=== PATIENT | male | born 1950 | race Caucasian/White ===

== ENCOUNTER 2018-11-04 07:17 | Day surgery (SDC) | payer OTHER ==
[~2018-11-04 07:17] MED LIST: Cefuroxime 10 MG/ML SYRINGE EYERT SCH; Lidocaine 1% PF 2 ML SDV INJECT SCH; Pilocarpine 4% Ophth Soln 15 ML Bot EYERT SCH
[2018-11-04] MEDS: Polymyxin B/Trimethoprim 10 ML Bottle EYERT SCH ×3 (07:36→09:33)
[2018-11-04] MEDS: Brimonidine 0.2% Ophth Soln 5 ML Bottle EYERT SCH ×3 (07:41→09:33)
[2018-11-04] MEDS: Phenylephrine 2.5% Ophth Soln 2 ML Bot EYERT SCH ×5 (07:46→09:13)
--- NOTE | 2018-11-04 07:48 | PCM.PREANE ---
Preanesthetic Assessment - Anesthesia/Transfusion/Family Hx Anesthesia History: No Prior Anesthesia Transfusion History: No Prior Transfusion(s) Intubation History: Unknown - Allergies Allergies/Adverse Reactions: Allergies Allergy/AdvReac Type Severity Reaction Status Date / Time No Known Allergies Allergy Verified 11/03/18 15:36 PreAnesthesia Questionnaire Cardiovascular History: Reports: Aneurysm, Hypertension, SC, Pacemaker, Stents Other Genitourinary History: prostate surgery Endocrine/Metabolic History: Reports: Diabetes, Type II - Past Surgical History Cardiovascular Surgical History: Male Surgical History: Reports: Prostatectomy - HOME MEDS Home Medications: Home Meds Lisinopril 1 tab PO DAILY 03/21/16 [History] metFORMIN [Glucophage] 1,000 mg PO BID 03/21/16 [History] Clopidogrel [Plavix] 75 mg PO DAILY 10/02/18 [History] - CURRENT (IN HOUSE) MEDS Current Meds: Current Medications Brimonidine Tartrate (Alphagan 0.2% Ophth Soln) 0 ml EYERT ASDIRECTED [facility] Stop: 11/04/18 18:00 Cefuroxime Sodium (Zinacef) 0 mg EYERT ASDIRECTED [facility] Stop: 11/04/18 18:00 Lidocaine HCl (Xylocaine-Mpf 1%) 0 ml INJECT ONETIME [facility] Stop: 11/04/18 18:00 Phenylephrine HCl (Colin-Synephrine 2.5% Ophth Soln) 0 ml EYERT ASDIRECTED [facility] Stop: 11/04/18 18:00 Pilocarpine HCl (Pilocar 4% Ophth Soln) 0 ml EYERT ASDIRECTED [facility] Stop: 11/04/18 18:00 Polymyxin/Trimethoprim Sulfate (Polytrim Ophth Soln) 0 ml EYERT ASDIRECTED [facility] Stop: 11/04/18 18:00 Last Admin: 11/04/18 07:36 Dose: 1 drop Tetracaine HCl (Tetracaine 0.5% Steri-Unit [place]) 0 ml EYERT ASDIRECTED [facility] Stop: 11/04/18 18:00 Tropicamide (Mydriacyl 1% Oph Soln) 0 ml EYERT ASDIRECTED [facility] Stop: 11/04/18 18:00
[2018-11-04] MEDS: Tropicamide 1% Ophth Soln 15 ML Bottle EYERT SCH ×4 (07:51→08:50)
--- NOTE | 2018-11-04 07:56 | PCM.PREANE ---
Preanesthetic Assessment - Anesthesia/Transfusion/Family Hx Anesthesia History: Prior Anesthesia Without Reaction Family History of Anesthesia Reaction: No Transfusion History: No Prior Transfusion(s) Intubation History: Unknown - Review of Systems General: No Symptoms Pulmonary: No Symptoms Cardiovascular: No Symptoms Gastrointestinal: No Symptoms Neurological: No Symptoms Other: Reports: None - Physical Assessment NPO Status Date: 11/03/18 NPO Status Time: 22:00 Pulse: 84 O2 Sat by Pulse Oximetry: 96 Respiratory Rate: 16 Blood Pressure: 133/81 Temperature: 97.1 C ASA Class: 2 Mental Status: Alert & Oriented x3 Airway Class: Mallampati = 2 Dentition: Reports: Bridge (upper) Thyro-Mental Finger Breadths: 3 Mouth Opening Finger Breadths: 3 ROM/Head Extension: Full Lungs: Clear to Auscultation, Normal Respiratory Effort Cardiovascular: Regular Rate, Regular Rhythm - Allergies Allergies/Adverse Reactions: Allergies Allergy/AdvReac Type Severity Reaction Status Date / Time No Known Allergies Allergy Verified 11/03/18 15:36 - Acknowledgements Anesthesia Type Planned: MAC Pt an Appropriate Candidate for the Planned Anesthesia: Yes Alternatives and Risks of Anesthesia Discussed w Pt/Guardian: Yes Pt/Guardian Understands and Agrees with Anesthesia Plan: Yes PreAnesthesia Questionnaire HEENT History: Reports: Cataract Cardiovascular History: Reports: Aneurysm, Hypertension, ME (pt states about 11 years ago), Pacemaker, Stents Respiratory History: Reports: None Gastrointestinal History: Reports: None Other Genitourinary History: prostate surgery Musculoskeletal History: Reports: Arthritis Endocrine/Metabolic History: Reports: Diabetes, Type II (pt states does not check BS) - Past Surgical History HEENT Surgical History: Reports: Cataract Surgery Cardiovascular Surgical History: Reports: Aneurysm, Coronary Artery Stent, Pacer Male Surgical History: Reports: Prostatectomy - SUBSTANCE USE Smoking Status *Q: Current Some Day Smoker - HOME MEDS Home Medications: Home Meds Lisinopril 1 tab PO DAILY 03/21/16 [History] metFORMIN [Glucophage] 1,000 mg PO BID 03/21/16 [History] Clopidogrel [Plavix] 75 mg PO DAILY 10/02/18 [History] - CURRENT (IN HOUSE) MEDS Current Meds: Current Medications Brimonidine Tartrate (Alphagan 0.2% Ophth Soln) 0 ml EYERT ASDIRECTED [facility] Stop: 11/04/18 18:00 Last Admin: 11/04/18 07:41 Dose: 1 drop Cefuroxime Sodium (Zinacef) 0 mg EYERT ASDIRECTED [facility] Stop: 11/04/18 18:00 Lidocaine HCl (Xylocaine-Mpf 1%) 0 ml INJECT ONETIME [facility] Stop: 11/04/18 18:00 Phenylephrine HCl (Colin-Synephrine 2.5% Ophth Soln) 0 ml EYERT ASDIRECTED [facility] Stop: 11/04/18 18:00 Last Admin: 11/04/18 07:46 Dose: 1 drop Pilocarpine HCl (Pilocar 4% Ophth Soln) 0 ml EYERT ASDIRECTED [facility] Stop: 11/04/18 18:00 Polymyxin/Trimethoprim Sulfate (Polytrim Ophth Soln) 0 ml EYERT ASDIRECTED [facility] Stop: 11/04/18 18:00 Last Admin: 11/04/18 07:36 Dose: 1 drop Tetracaine HCl (Tetracaine 0.5% Steri-Unit [place]) 0 ml EYERT ASDIRECTED [facility] Stop: 11/04/18 18:00 Tropicamide (Mydriacyl 1% Ophth Soln) 0 ml EYERT ASDIRECTED [facility] Stop: 11/04/18 18:00
[2018-11-04] MEDS: Tetracaine HCl/PF 0.5% 4 ML Bottle EYERT SCH ×2 (09:07→09:20)
[2018-11-04 09:36] VITALS: BP 165/87
--- NOTE | 2018-11-04 09:36 | PCM48HPAN ---
Post Anesthesia Note - EVALUATION WITHIN 48HRS OF ANESTHETIC Vital Signs in Normal Range: Yes Patient Participated in Evaluation: Yes Respiratory Function Stable: Yes Airway Patent: Yes Cardiovascular Function Stable: Yes Hydration Status Stable: Yes Pain Control Satisfactory: Yes Nausea and Vomiting Control Satisfactory: Yes Mental Status Recovered: Yes Pulse Rate: 60 SaO2: 96 Resp Rate: 12 Temperature: 97.1 C Blood Pressure: 165/87
== END 2018-11-04 09:44 | disposition home or self-care (01) ==
LOC: JD.SDS 07:17
PROVIDERS: ATTEND Ophthalmology
DX: E11.36 Type 2 diabetes mellitus with diabetic cataract (principal); H25.811 Combined forms of age-related cataract, right eye; I10 Essential (primary) hypertension; F17.200 Nicotine dependence, unspecified, uncomplicated; Z79.84 Long term (current) use of oral hypoglycemic drugs; Z79.899 Other long term (current) drug therapy; Z95.0 Presence of cardiac pacemaker; Z98.42 Cataract extraction status, left eye; Z96.1 Presence of intraocular lens
CPT/HCPCS: 66984; A9270; J0697; J2001; V2632

== ENCOUNTER 2020-03-22 10:18 | Emergency (ER) | payer MEDICARE, OTHER ==
[2020-03-22 10:29] VITALS: BP 155/77; PULSE 65
[2020-03-22] MEDS ORDERED: Sodium Chloride 0.9% 10 ML Syringe FLUSH PRN (10:37)
[2020-03-22] MEDS ORDERED: Aspirin 81 MG Tab.Chew PO ONE (10:37)
--- NOTE | 2020-03-22 10:50 | EDM.PDOC ---
ED HPI GENERAL MEDICAL PROBLEM - General Chief Complaint: Chest Pain Stated Complaint: CHEST PAIN Time Seen by Provider: 03/22/20 10:28 Source of Information: Reports: Patient History Limitations: Reports: No Limitations - History of Present Illness INITIAL COMMENTS - FREE TEXT/NARRATIVE: The patient presents with chest pain. This has been coming and going for about 5 days. The pain comes and goes and is made worse with exertion. He has a little shortness of breath with it. He has a history of an NC and stents about 10 years ago. He also has a pacemaker. He has no fever, chills, cough, congestion, runny nose, abdominal pain, nausea or vomiting. He just had an echocardiogram done at our hospital. He went to the [facility] for labs and then sent him here for evaluation. He says he has a history of an aneurysm that they have been watching. The aneurysm was fixed before his heart attack and it was near his kidneys according to the patient. Onset: Gradual Duration: Day(s): (5) Location: Reports: Chest Quality: Reports: Sharp Severity: Moderate Improves with: Reports: Rest Worsens with: Reports: Movement Associated Symptoms: Reports: Chest Pain, Shortness of Breath. Denies: Cough, Fever/Chills, Headaches, Nausea/Vomiting Treatments PALLETISER OPERATOR: Reports: Aspirin Other Treatments PALLETISER OPERATOR: 81mg chest Pain Score (Numeric/FACES): 5 - Related Data Allergies Allergy/AdvReac Type Severity Reaction Status Date / Time No Known Allergies Allergy Verified 03/22/20 10:29 Home Meds: Home Meds Lisinopril 40 mg PO DAILY 03/21/16 [History] metFORMIN [Glucophage] 1,000 mg PO BID 03/21/16 [History] Clopidogrel [Plavix] 75 mg PO DAILY 10/02/18 [History] Alogliptin Benzoate [Alogliptin] 25 mg PO DAILY 03/22/20 [History] Ibuprofen 800 mg PO TID PRN 03/22/20 [History] Isosorbide Mononitrate [Imdur] 30 mg PO DAILY #30 tab.er 03/22/20 [Rx] Lidocaine 2 each TP ASDIRECTED 03/22/20 [History] Nitroglycerin 0.4 mg SL Q5M PRN #1 bottle 03/22/20 [Rx] hydroCHLOROthiazide [Hydrochlorothiazide] 12.5 mg PO DAILY 03/22/20 [History] Past Medical History HEENT History: Reports: Cataract Cardiovascular History: Reports: Aneurysm, Hypertension, NC, Pacemaker, Stents Respiratory History: Reports: None Gastrointestinal History: Reports: None Other Genitourinary History: prostate surgery Musculoskeletal History: Reports: Arthritis Endocrine/Metabolic History: Reports: Diabetes, Type II - Past Surgical History HEENT Surgical History: Reports: Cataract Surgery Male Surgical History: Reports: Prostatectomy Social & Family History - Tobacco Use Smoking Status *Q: Former Smoker Used Tobacco, but Quit: Yes Month/Year Tobacco Last Used: 05/01 - Caffeine Use Caffeine Use: Reports: None - Recreational Drug Use Recreational Drug Use: No ED ROS GENERAL - Review of Systems Review Of Systems: See Below Constitutional: Reports: No Symptoms HEENT: Reports: No Symptoms Respiratory: Reports: Shortness of Breath Cardiovascular: Reports: Chest Pain Endocrine: Reports: No Symptoms GI/Abdominal: Reports: No Symptoms : Reports: No Symptoms Musculoskeletal: Reports: No Symptoms ED EXAM, GENERAL - Physical Exam Exam: See Below Exam Limited By: No Limitations General Appearance: Alert, No Apparent Distress Ears: Normal External Exam Nose: Normal Inspection Head: Atraumatic, Normocephalic Neck: Normal Inspection Respiratory/Chest: No Respiratory Distress, Lungs Clear, Normal Breath Sounds Cardiovascular: Regular Rate, Rhythm, No Edema, No Murmur GI/Abdominal: Soft, Non-Tender, No Organomegaly, No Mass Back Exam: Normal Inspection Extremities: Normal Inspection EKG INTERPRETATION EKG Date: 03/22/20 Time: 10:21 Rhythm: Other (atrial paced rhythm) Rate (Beats/Min): 66 [place]: Normal P-Wave: Present QRS: Normal ST-T: Normal QT: Normal Course - Vital Signs Last Recorded V/S: Last Vital Signs Temp 97.1 F 03/22/20 10:24 Pulse 65 03/22/20 10:24 Resp 19 03/22/20 10:24 BP 155/77 H 03/22/20 10:24 Pulse Ox 97 03/22/20 10:24 - Orders/Labs/Meds Orders: Active Orders 24 hr Category Date Time Status Cardiac Monitoring [RC] . DIRECTED Care 03/22/20 10:37 Active EKG Documentation Completion [RC] STAT Care 03/22/20 10:38 Active Peripheral IV Care [RC] . DIRECTED Care 03/22/20 10:38 Active TROPONIN I [CHEM] Stat Lab 03/22/20 12:15 Ordered Sodium Chloride 0.9% [Saline Flush] Med 03/22/20 10:37 Active 10 ml FLUSH ASDIRECTED PRN Peripheral IV Insertion Adult [OM.PC] Stat Oth 03/22/20 10:37 Ordered Medication Orders Sodium Chloride (Saline Flush) 10 ml FLUSH ASDIRECTED PRN PRN Reason: Keep Vein Open Last Admin: 03/22/20 10:50 Dose: 10 ml Labs: Laboratory Tests 03/22/20 03/22/20 Range/Units 10:30 10:30 WBC 8.77 (4.23-9.07) K/mm3 RBC 4.43 L (4.63-6.08) M/mm3 Hgb 14.2 (13.7-17.5) gm/dl Hct 43.3 (40.1-51.0) % MCV 97.7 H (79.0-92.2) fl MCH 32.1 (25.7-32.2) pg MCHC 32.8 (32.2-35.5) g/dl RDW Std Deviation 44.0 H (35.1-43.9) fL Plt Count 250 (163-337) K/mm3 MPV 9.6 (9.4-12.3) fl Neut % (Auto) 62.5 (34.0-67.9) % Lymph % (Auto) 24.5 (21.8-53.1) % [place] % (Auto) 10.3 (5.3-12.2) % Eos % (Auto) 2.4 (0.8-7.0) Baso % (Auto) 0.2 (0.1-1.2) % Neut # (Auto) 5.48 H (1.78-5.38) K/mm3 Lymph # (Auto) 2.15 (1.32-3.57) K/mm3 [place] # (Auto) 0.90 H (0.30-0.82) K/mm3 Eos # (Auto) 0.21 (0.04-0.54) K/mm3 Baso # (Auto) 0.02 (0.01-0.08) K/mm3 Sodium 139 (136-145) mEq/L Potassium 4.2 (3.5-5.1) mEq/L Chloride 101 (98-107) mEq/L Carbon Dioxide 28 (21-32) mEq/L Anion Gap 14.2 (5-15) BUN 20 H (7-18) mg/dL Creatinine 1.0 (0.7-1.3) mg/dL Est Cr Clr Drug Dosing 75.30 mL/min Estimated GFR (MDRD) > 60 (>60) mL/min BUN/Creatinine Ratio 20.0 H (14-18) Glucose 117 H (80-115) mg/dL Calcium 9.5 (8.5-10.1) mg/dL Total Bilirubin 0.5 (0.2-1.0) mg/dL AST 17 (15-37) U/L ALT 28 (16-63) U/L Alkaline Phosphatase 40 L (46-116) U/L Troponin I < 0.017 (0.00-0.056) ng/mL Total Protein 7.3 (6.4-8.2) g/dl Albumin 3.8 (3.4-5.0) g/dl Globulin 3.5 gm/dL Albumin/Globulin Ratio 1.1 (1-2) Meds: Medications Generic Name Dose Route Start Last Admin Trade Name Freq PRN Reason Stop Dose Admin Sodium Chloride 10 ml 03/22/20 10:37 03/22/20 10:50 Saline Flush FLUSH 10 ml ASDIRECTED PRN Administration Keep Vein Open Discontinued Medications Generic Name Dose Route Start Last Admin Trade Name Freq PRN Reason Stop Dose Admin Aspirin 324 mg 03/22/20 10:37 03/22/20 10:50 Aspirin PO 03/22/20 10:38 324 mg ONETIME ONE Administration - Re-Assessments/Exams Free Text/Narrative Re-Assessment/Exam: 03/22/20 10:50 I ordered an IV saline lock, EKG, CXR, labs and aspirin. He says the pain is mostly gone now. 03/22/20 12:20 His EKG shows a atrial-paced rhythm without acute changes. His CXR looks good. His CBC and CMP look good. His troponin is negative. He feels good now. I called [facility] in [place] and talked with Dr Miranda and he looked at the patient's heart cath that was done in November. He did not think he needed to come to [place]. He did recommend imdur daily and nitro PRN and follow up with Dr Gomez. I will get a repeat troponin before he leaves. Departure - Departure Time of Disposition: 12:30 Disposition: Home, Self-Care 01 Condition: Good Clinical Impression: Chest pain Qualifiers: Chest pain type: unspecified Qualified Code(s): R07.9 - Chest pain, unspecified Prescriptions: Isosorbide Mononitrate [Imdur] 30 mg PO DAILY #30 tab.er Nitroglycerin 0.4 mg SL Q5M PRN #1 bottle PRN Reason: Chest Pain Referrals: Emely Norris MD [Primary Care Provider] - 1 Week Forms: ED Department Discharge Additional Instructions: Take your medications as prescribed. Take the imdur 30mg daily. Take the nitro 0.4mg under your tongue every 5 minutes X 3 doses for chest pain. Follow up with Dr Norris and Dr Kinney. Please return if you are worse. Sepsis Event Note (ED) - Evaluation Sepsis Screening Result: No Definite Risk - Focused Exam Vital Signs: Vital Signs Temp Pulse Resp BP Pulse Ox 03/22/20 10:24 97.1 F 65 19 155/77 H 97 - My Orders Last 24 Hours: My Active Orders 03/22/20 10:37 Cardiac Monitoring [RC] . DIRECTED Sodium Chloride 0.9% [Saline Flush] 10 ml FLUSH ASDIRECTED PRN Peripheral IV Insertion Adult [OM.PC] Stat 03/22/20 10:38 EKG Documentation Completion [RC] STAT Peripheral IV Care [RC] . DIRECTED 03/22/20 12:15 TROPONIN I [CHEM] Stat - Assessment/Plan Last 24 Hours: My Active Orders 03/22/20 10:37 Cardiac Monitoring [RC] . DIRECTED Sodium Chloride 0.9% [Saline Flush] 10 ml FLUSH ASDIRECTED PRN Peripheral IV Insertion Adult [OM.PC] Stat 03/22/20 10:38 EKG Documentation Completion [RC] STAT Peripheral IV Care [RC] . DIRECTED 03/22/20 12:15 TROPONIN I [CHEM] Stat
--- NOTE | 2020-03-22 11:01 | CR ---
Chest: Portable view of the chest was obtained. Comparison: No prior chest imaging is available. Heart size and mediastinum are within normal limits for portable technique. Lungs are clear with no acute parenchymal change. Pacemaker is noted. Bony structures are grossly intact. Impression: 1. Nothing acute is appreciated on portable chest x-ray. Diagnostic code #1 This report was dictated in MDT
== END 2020-03-22 12:49 | disposition home or self-care (01) ==
LOC: JD.ED 10:18
DX: R07.9 Chest pain, unspecified (principal); I10 Essential (primary) hypertension; E11.9 Type 2 diabetes mellitus without complications; M19.90 Unspecified osteoarthritis, unspecified site; I25.2 Old myocardial infarction; Z95.5 Presence of coronary angioplasty implant and graft; Z95.0 Presence of cardiac pacemaker; Z87.891 Personal history of nicotine dependence; Z79.02 Long term (current) use of antithrombotics/antiplatelets; Z79.84 Long term (current) use of oral hypoglycemic drugs; Z79.899 Other long term (current) drug therapy
CPT/HCPCS: 36415; 71045; 80053; 84484; 85025; 93005; 99285; A9270; 93010; 99284

== ENCOUNTER 2021-04-05 08:59 | Observation (INO) | payer OTHER, MEDICARE ==
[2021-04-05] MEDS ORDERED: HYDROmorphone 0.5 MG/0.5 ML Syringe IVPUSH ONE ×3 (09:37→11:25)
[2021-04-05] MEDS ORDERED: Sodium Chloride 0.9% 10 ML Syringe FLUSH PRN ×2 (09:37→11:27)
[2021-04-05] MEDS ORDERED: Sodium Chloride 0.9% 1,000 ML IV SCH (09:45)
--- NOTE | 2021-04-05 10:54 | CR ---
Chest and right ribs: Frontal view of the chest was obtained as well as 3 views of the right ribs. Comparison: Prior chest x-ray of 03/22/20. Pacemaker is noted. Lungs are clear with no acute parenchymal change. Heart size is within normal limits. Slight tortuosity of the thoracic aorta is noted. Scattered degenerative endplate spurring is noted within the spine. No fracture or other discrete right-sided rib abnormality is appreciated. Impression: 1. Nothing acute is seen on frontal chest x-ray. 2. No definite acute right-sided rib abnormality is appreciated. Diagnostic code #2
[2021-04-05] MEDS ORDERED: Iopamidol 612 MG/ML 100 ML Bottle IVPUSH ONE (11:27)
[2021-04-05] MEDS ORDERED: Iopamidol 612 MG/ML 50 ML SDV IVPUSH ONE (11:27)
--- NOTE | 2021-04-05 12:16 | CT ---
CT lumbar spine Technique: Multiple axial sections were obtained from above L1-2 inferiorly through the L5-S1 disc. Reconstructed coronal and sagittal images were obtained. Comparison: No prior lumbar spine imaging is available. Findings: Vertebral body heights are maintained. Bilateral spondylolytic defects are seen at L5-S1. There is severe disc space narrowing at L5-S1 with vacuum disc phenomena. There is also spondylolisthesis measuring about 4 mm at L5-S1. There is mild disc space narrowing at L3-4 and L4-5. Diffuse degenerative apophyseal change is noted. Diffuse endplate osteophytes are present. Circumferential disc bulge is noted at L2-3. Circumferential disc bulge and vacuum phenomena is noted at L3-4. There is felt to be moderate central canal stenosis at L4-5. Degenerative change is noted within both sacroiliac joints. No acute fracture is seen. Impression: 1. Diffuse degenerative change as noted above. 2. No acute fracture or abnormal subluxation is seen. Diagnostic code #2
--- NOTE | 2021-04-05 12:36 | CT ---
CT chest Technique: Multiple axial sections were obtained from above the lung apices inferiorly through the lung bases. Intravenous contrast was utilized. Reconstructed coronal and sagittal images were obtained. Comparison: No prior CT chest study is available, prior chest x-ray of 04/05/21 is available. Findings: Pacemaker is noted with artifact. Thoracic aorta shows atherosclerotic calcification with no aneurysm. Mediastinum and hilar regions show no adenopathy. Coronary artery calcification is seen. No pericardial thickening is seen. No axillary adenopathy is appreciated. Slight atelectasis is noted within the right lung base. Lungs otherwise are clear. No acute pulmonary contusion is seen. No pleural effusions or pneumothorax are seen. Bone window settings were reviewed which show no acute osseous abnormality. There is degenerative change with disc space narrowing and endplate spurring noted within the spine. Slight compression deformities are noted within T7 and T9 which are believed to be old. Impression: 1. Atelectasis within the right lung base. 2. Degenerative change within the spine. Coronary artery calcification is seen. 3. Pacemaker is noted. 4. Nothing acute is otherwise seen on CT study of the chest. Diagnostic code #2 CT abdomen and pelvis Technique: Multiple axial sections were obtained from above the lung apices inferiorly through the lung bases. Intravenous contrast was utilized. No oral contrast has been given. Reconstructed coronal and sagittal images were obtained. Comparison: Prior CT abdomen and pelvis exam was 06/03/12. Findings: There is low density seen along the right lateral side of the liver as well as inferior to the liver, these are felt to represent areas of subcapsular hematoma. Thickness of the inferior area of subcapsular hematoma is 4.6 cm with transverse measurement being 10.3 cm. Thickness of the lateral hematoma is about 1.5 cm with length of about 12 cm. I do not see any definite intraparenchymal liver abnormality at this time. Spleen size is normal. Gallbladder contains no calcified gallstones. Adrenal glands show no nodule. Pancreas is within normal limits. Abdominal aorta shows aneurysmal dilatation with intravascular graft being seen. Kidneys show small cysts with normal enhancement. No renal abnormality otherwise seen. No retroperitoneal adenopathy or mesenteric abnormalities are seen. There is blood being seen within the pelvis. No bowel dilatation is seen. Anterior abdominal wall graft is noted. Appendix is seen and is normal in size. Bone window settings were reviewed which show degenerative change within the spine with no acute osseous abnormality being seen. Impression: 1. Large subdural hematoma is felt to be present. This is felt to represent a grade II CT injury score. 2. Small amount of blood within the pelvis is also noted. 3. No definite parenchymal abnormality is appreciated within the liver. 4. Other nonacute findings as noted above. Diagnostic code #5
--- NOTE | 2021-04-05 12:41 | CT ---
CT thoracic spine Technique: Multiple axial sections were obtained through the thoracic spine. Reconstructed coronal and sagittal images were obtained. Comparison: No prior thoracic spine imaging is available. Findings: Scattered disc space narrowing is seen throughout the thoracic spine. Scattered endplate osteophytes are seen. Scattered Schmorl's node deformities are noted. Slight compression deformities are seen within T7 and T9 which are felt to be old. No abnormal subluxation is seen. Nondisplaced rib fracture is seen within the posterior right ninth rib. There is also very minimal pleural effusion being seen on this exam within the right lung base. No thoracic spine fracture is appreciated. Impression: 1. Nondisplaced fracture within the posterior right ninth rib. Minimal pleural effusion is also noted within the adjacent right lung base. 2. Degenerative change throughout the thoracic spine. No acute fracture or abnormal subluxation is seen within the thoracic spine. Diagnostic code #3
--- NOTE | 2021-04-05 14:04 | EDM.PDOC ---
ED HPI GENERAL MEDICAL PROBLEM - General Chief Complaint: General Stated Complaint: RT SIDE BACK/ARM FELL X2 Time Seen by Provider: 04/05/21 09:23 Source of Information: Reports: Patient, RN Notes Reviewed - History of Present Illness INITIAL COMMENTS - FREE TEXT/NARRATIVE: 70 yr old male fell 2 days ago unto R side. Hit his R head and face, no LOC. He has had severe lateral chest wall, R post/lat back pain worse with any type of motion. Pain seems worse today. Very difficult to get out of bed, into or out of chair or to the bathroom. Lives alone. He is on plavix with hx of cardiac stent. Has also had "aneurysm repair". This was called a trauma alert based on [facility] of injury, chest pain severity and on plavix. No recent cough, fever or chills. - Related Data Allergies Allergy/AdvReac Type Severity Reaction Status Date / Time No Known Allergies Allergy Verified 04/05/21 09:16 Home Meds: Home Meds Lisinopril 40 mg PO DAILY 03/21/16 [History] metFORMIN [Glucophage] 1,000 mg PO BID 03/21/16 [History] Clopidogrel [Plavix] 75 mg PO DAILY 10/02/18 [History] Alogliptin Benzoate [Alogliptin] 25 mg PO DAILY 03/22/20 [History] Ibuprofen 800 mg PO TID PRN 03/22/20 [History] Nitroglycerin 0.4 mg SL Q5M PRN #1 bottle 03/22/20 [Rx] hydroCHLOROthiazide [Hydrochlorothiazide] 12.5 mg PO DAILY 03/22/20 [History] Acetaminophen [Tylenol] 325 mg PO Q4H PRN 04/05/21 [History] Ascorbate Calcium [Vitamin C] 500 mg PO ASDIRECTED 04/05/21 [History] Aspirin 81 mg PO ASDIRECTED 04/05/21 [History] Fish Oil/[place]-3 Fatty Acids [Fish Oil 1,000 MG] 1 tab PO ASDIRECTED 04/05/21 [History] Multivit-Min/Folic/Vit K/Lycop [Men's Multivitamin Tablet] 1 each PO ASDIRECTED 04/05/21 [History] Tamsulosin [Tamsulosin 24 Hr] 0.4 mg PO ASDIRECTED 04/05/21 [History] Ubidecarenone [Co Q-10] 100 mg PO ASDIRECTED 04/05/21 [History] atorvaSTATin Calcium [Atorvastatin Calcium] 10 mg PO ASDIRECTED 04/05/21 [History] lisinopriL [Lisinopril] 40 mg PO ASDIRECTED 04/05/21 [History] Past Medical History HEENT History: Reports: Cataract Cardiovascular History: Reports: Aneurysm, Hypertension, [place], Pacemaker, Stents Respiratory History: Reports: None Gastrointestinal History: Reports: None Other Genitourinary History: prostate surgery Musculoskeletal History: Reports: Arthritis Endocrine/Metabolic History: Reports: Diabetes, Type II - Past Surgical History HEENT Surgical History: Reports: Cataract Surgery Male Surgical History: Reports: Prostatectomy Social & Family History - Tobacco Use Tobacco Use Status *Q: Current Every Day Tobacco User Years of Tobacco use: 55 Packs/Tins Daily: 0.5 - Caffeine Use Caffeine Use: Reports: None - Recreational Drug Use Recreational Drug Use: No ED ROS GENERAL - Review of Systems Review Of Systems: See Below Constitutional: Denies: Fever, Chills, Diaphoresis HEENT: Reports: Other (had some R facial pain after fall 2 days ago, that pain is gone) Respiratory: Denies: Shortness of Breath, Pleuritic Chest Pain, Cough Cardiovascular: Reports: Chest Pain (R post lat pain with motion) GI/Abdominal: Reports: Abdominal Pain (mild pain R upper abd) Musculoskeletal: Reports: Back Pain ( post lat back) Skin: Reports: Bruising (R forehead and face) Neurological: Denies: Headache, Numbness, Tingling, Trouble Speaking ED EXAM, GENERAL - Physical Exam Exam: See Below General Appearance: Alert, Mild Distress, Other (severe distress with any type of motion) Eye Exam: Bilateral Eye: PERRL Ear Exam: Bilateral Ear: Auricle Normal Nose: Normal Inspection Throat/Mouth: Normal Inspection Head: Other (bruising R forehead, lateral to R eye). No: Facial Swelling Respiratory/Chest: No Respiratory Distress, Lungs Clear, Normal Breath Sounds. No: Rhonchi, Wheezing Cardiovascular: Regular Rate, Rhythm GI/Abdominal: Tender (moderate tenderness R upper abd) Back Exam: CVA Tenderness (R), Other (Tender R lateral and R post lat mid back) Extremities: No: Leg Pain Neurological: Alert, Oriented, No Motor/Sensory Deficits Skin Exam: Warm, Dry, Normal Color Course - Vital Signs Last Recorded V/S: Last Vital Signs Temp 97.3 F 04/05/21 14:41 Pulse 64 04/05/21 14:41 Resp 18 04/05/21 14:41 BP 149/84 H 04/05/21 14:41 Pulse Ox 95 04/05/21 14:41 - Orders/Labs/Meds Orders: Active Orders 24 hr Category Date Time Status Sodium Chloride 0.9% [Normal Saline] 1,000 ml Med 04/05/21 09:45 Active IV ONETIME Sodium Chloride 0.9% [Saline Flush] Med 04/05/21 09:37 Active 10 ml FLUSH ASDIRECTED PRN Sodium Chloride 0.9% [Saline Flush] Med 04/05/21 11:27 Active 10 ml FLUSH ONETIME PRN Peripheral IV Insertion Adult [OM.PC] Stat Oth 04/05/21 09:37 Ordered Medication Orders Sodium Chloride (Normal Saline) 1,000 mls @ 999 mls/hr IV ONETIME [facility] Last Admin: 04/05/21 09:46 Dose: 999 mls/hr Documented by: CUCO Sodium Chloride (Sodium Chloride 0.9% 10 Ml Syringe) 10 ml FLUSH ASDIRECTED PRN PRN Reason: Keep Vein Open Last Admin: 04/05/21 09:47 Dose: 10 ml Documented by: CUCO Sodium Chloride (Sodium Chloride 0.9% 10 Ml Syringe) 10 ml FLUSH ONETIME PRN PRN Reason: IV FLUSH Last Admin: 04/05/21 11:43 Dose: 10 ml Documented by: JOSE Labs: Laboratory Tests 04/05/21 04/05/21 04/05/21 Range/Units 09:23 09:23 09:45 WBC 13.36 H (4.23-9.07) K/mm3 RBC 3.81 L (4.63-6.08) M/mm3 Hgb 12.4 L D (13.7-17.5) gm/dl Hct 36.7 L (40.1-51.0) % MCV 96.3 H (79.0-92.2) fl MCH 32.5 H (25.7-32.2) pg MCHC 33.8 (32.2-35.5) g/dl RDW Std Deviation 41.7 (35.1-43.9) fL Plt Count 223 (163-337) K/mm3 MPV 9.7 (9.4-12.3) fl Neut % (Auto) 80.5 H (34.0-67.9) % Lymph % (Auto) 9.4 L (21.8-53.1) % [place] % (Auto) 9.4 (5.3-12.2) % Eos % (Auto) 0.3 L (0.8-7.0) Baso % (Auto) 0.2 (0.1-1.2) % Neut # (Auto) 10.74 H (1.78-5.38) K/mm3 Lymph # (Auto) 1.26 L (1.32-3.57) K/mm3 [place] # (Auto) 1.26 H (0.30-0.82) K/mm3 Eos # (Auto) 0.04 (0.04-0.54) K/mm3 Baso # (Auto) 0.03 (0.01-0.08) K/mm3 Manual Slide Review Abnormal smear Sodium 132 L (136-145) mEq/L Potassium 4.1 (3.5-5.1) mEq/L Chloride 95 L (98-107) mEq/L Carbon Dioxide 24 (21-32) mEq/L Anion Gap 17.1 H (5-15) BUN 29 H (7-18) mg/dL Creatinine 1.3 (0.7-1.3) mg/dL Est Cr Clr Drug Dosing 57.12 mL/min Estimated GFR (MDRD) 55 (>60) mL/min BUN/Creatinine Ratio 22.3 H (14-18) Glucose 156 H (70-99) mg/dL Calcium 9.2 (8.5-10.1) mg/dL Total Bilirubin 1.0 (0.2-1.0) mg/dL AST 73 H (15-37) U/L ALT 114 H (16-63) U/L Alkaline Phosphatase 47 (46-116) U/L Total Protein 7.5 (6.4-8.2) g/dl Albumin 4.0 (3.4-5.0) g/dl Globulin 3.5 gm/dL Albumin/Globulin Ratio 1.1 (1-2) SARS-CoV-2 RNA (DAT) Negative (NEGATIVE) Meds: Medications Generic Name Dose Route Start Last Admin Trade Name Rayo PRN Reason Stop Dose Admin Sodium Chloride 1,000 mls @ 999 mls/hr 04/05/21 09:45 04/05/21 09:46 Normal Saline IV 999 mls/hr ONETIME [facility] Administration Sodium Chloride 10 ml 04/05/21 09:37 04/05/21 09:47 Sodium Chloride 0.9% 10 Ml Syringe FLUSH 10 ml ASDIRECTED PRN Administration Keep Vein Open Sodium Chloride 10 ml 04/05/21 11:27 04/05/21 11:43 Sodium Chloride 0.9% 10 Ml Syringe FLUSH 10 ml ONETIME PRN Administration IV FLUSH Discontinued Medications Generic Name Dose Route Start Last Admin Trade Name Rayo PRN Reason Stop Dose Admin Hydromorphone HCl 0.5 mg 04/05/21 09:37 04/05/21 09:46 Hydromorphone 0.5 Mg/0.5 Ml Syringe IVPUSH 04/05/21 09:38 0.5 mg ONETIME ONE Administration Hydromorphone HCl 0.5 mg 04/05/21 11:00 04/05/21 11:05 Hydromorphone 0.5 Mg/0.5 Ml Syringe IVPUSH 04/05/21 11:01 0.5 mg ONETIME ONE Administration Hydromorphone HCl 0.5 mg 04/05/21 11:25 04/05/21 12:01 Hydromorphone 0.5 Mg/0.5 Ml Syringe IVPUSH 04/05/21 11:26 0.5 mg ONETIME ONE Administration Iopamidol 100 ml 04/05/21 11:27 04/05/21 11:42 Iopamidol 612 Mg/Ml 100 Ml Bottle IVPUSH 04/05/21 11:28 100 ml ONETIME ONE Administration Iopamidol 50 ml 04/05/21 11:27 04/05/21 11:42 Iopamidol 612 Mg/Ml 50 Ml Sdv IVPUSH 04/05/21 11:28 25 ml ONETIME ONE Administration - Re-Assessments/Exams Free Text/Narrative Re-Assessment/Exam: 04/05/21 14:38 CXR with ribs did not show fracture or acute findings. Due to severity of pain with even minimal motion CT of chest/abd/pelvis and also thoracic and lumbar spine ordered. CT of the lumbar spine showed fx of posterior 9th rib. CT Abd shows a large subcapsular liver hematoma and a small amt of blood in the pelvis. See Radiologist report for details. Due to severity of his pain with even minimal motion such as difficulty turning unto side for back exam at time of exam pt will be admitted observation status for pain control, other assistance as needed. Departure - Departure Time of Disposition: 14:03 Disposition: Home, Self-Care 01 Condition: Fair Clinical Impression: Fall Qualifiers: Encounter type: initial encounter Qualified Code(s): W19.XXXA - Unspecified fall, initial encounter Liver hematoma, grade II, without open wound into cavity Qualifiers: Encounter type: initial encounter Qualified Code(s): S36.112A - Contusion of liver, initial encounter Rib fracture Qualifiers: Encounter type: initial encounter Rib fracture type: single rib - Discharge Information Sepsis Event Note (ED) - Evaluation Sepsis Screening Result: No Definite Risk - Focused Exam Vital Signs: Vital Signs Temp Pulse Resp BP Pulse Ox 04/05/21 12:00 77 16 166/93 H 97 04/05/21 09:14 97.7 F 90 16 165/81 H 93 L ED Communication - Discussed Case With (1) Discussed Case With (1): Admitting Provider (Discussed with Dr Painting, decision to admit at about 13:30) - My Orders Last 24 Hours: My Active Orders 04/05/21 09:37 Sodium Chloride 0.9% [Saline Flush] 10 ml FLUSH ASDIRECTED PRN Peripheral IV Insertion Adult [OM.PC] Stat 04/05/21 09:45 Sodium Chloride 0.9% [Normal Saline] 1,000 ml IV ONETIME 04/05/21 11:27 Sodium Chloride 0.9% [Saline Flush] 10 ml FLUSH ONETIME PRN - Assessment/Plan Last 24 Hours: My Active Orders 04/05/21 09:37 Sodium Chloride 0.9% [Saline Flush] 10 ml FLUSH ASDIRECTED PRN Peripheral IV Insertion Adult [OM.PC] Stat 04/05/21 09:45 Sodium Chloride 0.9% [Normal Saline] 1,000 ml IV ONETIME 04/05/21 11:27 Sodium Chloride 0.9% [Saline Flush] 10 ml FLUSH ONETIME PRN
[2021-04-05] MEDS: Sodium Chloride 0.9% 1,000 ML IV SCH (15:29)
[2021-04-05] MEDS: HYDROmorphone 0.5 MG/0.5 ML Syringe IVPUSH PRN ×3 (15:29→23:12)
[2021-04-05] MEDS ORDERED: Ondansetron 4 MG Tab.DIS PO PRN (18:03)
[2021-04-05] MEDS ORDERED: Ibuprofen 600 MG Tab PO PRN (18:03)
[2021-04-05] MEDS ORDERED: Nitroglycerin 0.4 MG Tab.SL SL PRN (18:14)
--- NOTE | 2021-04-05 18:23 | PCM.HP.2 ---
H&P History of Present Illness - General Date of Service: 04/05/21 Admit Problem/Dx: Admission Diagnosis/Problem Admission Diagnosis/Problem Rib injury Source of Information: Patient History Limitations: Reports: No Limitations - History of Present Illness Initial Comments - Free Text/Narative: Patient [place] Tripped and fell from sta nding landing on his right body. Hit his head, right shoulder and trunk. Was able to get up and return home. This happened Tuesday 04/03. He denies LOC as he remembers the entire event. At home pain was bad and he decided to come to the hospital today. Has bilateral knee problems and right hip problem so he is wabbly at baseline. Pain on the right hip and knee as well but was able to walk to some extent. Has DM, smokes 1/2 PPD, CAD, prior AAA repair on Plavix and ASA, HTN, Pacemaker. He underwent CT chest/A/P, CT T/L spine - which showed grade II liver injury and right posterior 9th rib fx. no other acute abnormalities. Onset of Symptoms: Reports: Sudden Duration of Symptoms: Reports: Day(s): (2) Location: Reports: Abdomen, Back Quality: Reports: Sharp Severity: Severe Improves with: Reports: Immobilization Worsens with: Reports: Movement Context: Reports: Trauma Associated Symptoms: Reports: No Other Symptoms Generalized Pain Score (Numeric/FACES): 9 - Related Data Allergies/Adverse Reactions: Allergies Allergy/AdvReac Type Severity Reaction Status Date / Time No Known Allergies Allergy Verified 04/05/21 15:06 Home Medications: Home Meds Lisinopril 20 mg PO DAILY 03/21/16 [History] metFORMIN [Glucophage] 500 mg PO BID 03/21/16 [History] Clopidogrel [Plavix] 75 mg PO DAILY 10/02/18 [History] Alogliptin Benzoate [Alogliptin] 25 mg PO DAILY 03/22/20 [History] Ibuprofen 800 mg PO TID PRN 03/22/20 [History] Nitroglycerin 0.4 mg SL Q5M PRN #1 bottle 03/22/20 [Rx] hydroCHLOROthiazide [Hydrochlorothiazide] 12.5 mg PO DAILY 03/22/20 [History] Acetaminophen [Tylenol] 650 mg PO Q4H PRN 04/05/21 [History] Ascorbate Calcium [Vitamin C] 500 mg PO DAILY 04/05/21 [History] Aspirin 81 mg PO DAILY 04/05/21 [History] Fish Oil/[place]-3 Fatty Acids [Fish Oil 1,000 MG] 1 tab PO BEDTIME 04/05/21 [History] Multivit-Min/Folic/Vit K/Lycop [Men's Multivitamin Tablet] 2 each PO DAILY 04/05/21 [History] Tamsulosin [Tamsulosin 24 Hr] 0.4 mg PO DAILY 04/05/21 [History] Ubidecarenone [Co Q-10] 100 mg PO DAILY 04/05/21 [History] atorvaSTATin Calcium [Atorvastatin Calcium] 10 mg PO ASDIRECTED 04/05/21 [History] Past Medical History HEENT History: Reports: Cataract Cardiovascular History: Reports: Aneurysm, Hypertension, [place], Pacemaker, Stents Respiratory History: Reports: None Gastrointestinal History: Reports: None Other Genitourinary History: prostate surgery Musculoskeletal History: Reports: Arthritis Neurological History: Reports: Concussion Endocrine/Metabolic History: Reports: Diabetes, Type II - Infectious Disease History Infectious Disease History: Reports: Chicken Pox, Measles, Shingles - Past Surgical History HEENT Surgical History: Reports: Cataract Surgery Other HEENT Surgeries/Procedures: lasix Male Surgical History: Reports: Prostatectomy Social & Family History - Tobacco Use Tobacco Use Status *Q: Current Every Day Tobacco User Years of Tobacco use: 50 Packs/Tins Daily: 0.5 Second Hand Smoke Exposure: No - Caffeine Use Caffeine Use: Reports: Coffee, Soda - Alcohol Use Date of Last Drink: 04/02/21 - Recreational Drug Use Recreational Drug Use: No H&P Review of Systems - Review of Systems: Review Of Systems: See Below General: Reports: No Symptoms HEENT: Reports: No Symptoms Pulmonary: Reports: Pleuritic Chest Pain Cardiovascular: Reports: Other (right chest wall pain) Gastrointestinal: Reports: Abdominal Pain (lower abdomen) Genitourinary: Reports: No Symptoms Musculoskeletal: Reports: Shoulder Pain (right), Leg Pain (right upper leg), Muscle Pain (right upper leg) Skin: Reports: Bruising (right face) Psychiatric: Reports: No Symptoms Neurological: Reports: No Symptoms Hematologic/Lymphatic: Reports: No Symptoms Immunologic: Reports: No Symptoms Exam - Exam Exam: See Below - Vital Signs Vital Signs: Last Vital Signs Temp 97.3 F 04/05/21 14:41 Pulse 64 04/05/21 14:41 Resp 18 04/05/21 14:41 BP 149/84 H 04/05/21 14:41 Pulse Ox 95 04/05/21 14:41 Weight: 126.099 kg - Exam General: Alert, Oriented, Cooperative HEENT: Conjunctiva Clear, EACs Clear, EOMI, Hearing Intact, Mucosa Moist & [place], Nares Patent, Normal Nasal Septum Neck: Supple, Trachea Midline Lungs: Clear to Auscultation, Normal Respiratory Effort Cardiovascular: Regular Rate, Regular Rhythm, Normal S1, Normal S2 GI/Abdominal Exam: Soft, Tender (mildly in the lower abdomen) Back Exam: Paraspinal Tenderness (right) Extremities: Normal Inspection, No Pedal Edema, Normal Capillary Refill, Other (tender in the right lateral thigh) Peripheral Pulses: 2+: Dorsalis Pedis (L), Dorsalis Pedis (R) Skin: Warm, Dry, Intact Neurological: Cranial Nerves Intact Neuro Extensive - Mental Status: Alert, Oriented x3, Normal Mood/Affect - Patient Data Lab Results Last 24 hrs: Laboratory Results - last 24 hr 04/05/21 04/05/21 04/05/21 Range/Units 09:23 09:23 09:45 WBC 13.36 H (4.23-9.07) K/mm3 RBC 3.81 L (4.63-6.08) M/mm3 Hgb 12.4 L D (13.7-17.5) gm/dl Hct 36.7 L (40.1-51.0) % MCV 96.3 H (79.0-92.2) fl MCH 32.5 H (25.7-32.2) pg MCHC 33.8 (32.2-35.5) g/dl RDW Std Deviation 41.7 (35.1-43.9) fL Plt Count 223 (163-337) K/mm3 MPV 9.7 (9.4-12.3) fl Neut % (Auto) 80.5 H (34.0-67.9) % Lymph % (Auto) 9.4 L (21.8-53.1) % [place] % (Auto) 9.4 (5.3-12.2) % Eos % (Auto) 0.3 L (0.8-7.0) Baso % (Auto) 0.2 (0.1-1.2) % Neut # (Auto) 10.74 H (1.78-5.38) K/mm3 Lymph # (Auto) 1.26 L (1.32-3.57) K/mm3 [place] # (Auto) 1.26 H (0.30-0.82) K/mm3 Eos # (Auto) 0.04 (0.04-0.54) K/mm3 Baso # (Auto) 0.03 (0.01-0.08) K/mm3 Manual Slide Review Abnormal smear Sodium 132 L (136-145) mEq/L Potassium 4.1 (3.5-5.1) mEq/L Chloride 95 L (98-107) mEq/L Carbon Dioxide 24 (21-32) mEq/L Anion Gap 17.1 H (5-15) BUN 29 H (7-18) mg/dL Creatinine 1.3 (0.7-1.3) mg/dL Est Cr Clr Drug Dosing 57.12 mL/min Estimated GFR (MDRD) 55 (>60) mL/min BUN/Creatinine Ratio 22.3 H (14-18) Glucose 156 H (70-99) mg/dL Calcium 9.2 (8.5-10.1) mg/dL Total Bilirubin 1.0 (0.2-1.0) mg/dL AST 73 H (15-37) U/L ALT 114 H (16-63) U/L Alkaline Phosphatase 47 (46-116) U/L Total Protein 7.5 (6.4-8.2) g/dl Albumin 4.0 (3.4-5.0) g/dl Globulin 3.5 gm/dL Albumin/Globulin Ratio 1.1 (1-2) SARS-CoV-2 RNA (DAT) Negative (NEGATIVE) Result Diagrams: 04/05/21 09:23 04/05/21 09:23 Sepsis Event Note - Evaluation Sepsis Screening Result: No Definite Risk - Focused Exam Vital Signs: Vital Signs Temp Temp Pulse Pulse Resp BP BP 04/05/21 14:41 97.3 F 64 18 149/84 H 04/05/21 12:00 77 16 166/93 H 04/05/21 09:14 97.7 F 90 16 165/81 H Pulse Ox 04/05/21 14:41 95 06/23/21 12:00 97 04/05/21 09:14 93 L Problem List Initiated/Reviewed/Updated: No Orders Last 24hrs: Active Orders 24 hr Category Date Time Status Admission Status [Patient Status] [ADT] Routine ADT 04/05/21 14:11 Active Antiembolic Devices [RC] PER UNIT ROUTINE Care 04/05/21 18:06 Ordered Blood Glucose Check, Bedside [RC] QIDACANDBED Care 04/05/21 18:03 Ordered Intake and Output [RC] QSHIFT Care 04/05/21 18:04 Ordered Oxygen Therapy [RC] PRN Care 04/05/21 18:03 Ordered Up With Assistance [RC] ASDIRECTED Care 04/05/21 15:08 Active Up With Assistance [RC] ASDIRECTED Care 04/05/21 18:03 Ordered Up ad Cintia [RC] ASDIRECTED Care 04/05/21 18:03 Ordered VTE/DVT Education [RC] PER UNIT ROUTINE Care 04/05/21 18:03 Ordered Vital Signs [RC] Q4H Care 04/05/21 18:03 Ordered OT Evaluation and Treatment [CONS] Routine Cons 04/05/21 18:03 Ordered PT Evaluation and Treatment [CONS] Routine Cons 04/05/21 18:03 Ordered ADA Diabetic [[employer] Diet] [DIET Diet 04/05/21 Dinner Active ] Regular Diet [DIET] Diet 04/05/21 Dinner Ordered BASIC METABOLIC PANEL,BMP [CHEM] AM Lab 04/06/21 05:11 Ordered BASIC METABOLIC PANEL,BMP [CHEM] AM Lab 04/07/21 05:11 Ordered BASIC METABOLIC PANEL,BMP [CHEM] AM Lab 04/08/21 05:11 Ordered BASIC METABOLIC PANEL,BMP [CHEM] AM Lab 04/09/21 05:11 Ordered BASIC METABOLIC PANEL,BMP [CHEM] AM Lab 04/10/21 05:11 Ordered CBC WITH AUTO DIFF [HEME] AM Lab 04/06/21 05:11 Ordered CBC WITH AUTO DIFF [HEME] AM Lab 04/07/21 05:11 Ordered CBC WITH AUTO DIFF [HEME] AM Lab 04/08/21 05:11 Ordered CBC WITH AUTO DIFF [HEME] AM Lab 04/09/21 05:11 Ordered CBC WITH AUTO DIFF [HEME] AM Lab 04/10/21 05:11 Ordered MAGNESIUM [CHEM] AM Lab 04/06/21 05:11 Ordered MAGNESIUM [CHEM] AM Lab 04/07/21 05:11 Ordered MAGNESIUM [CHEM] AM Lab 04/08/21 05:11 Ordered MAGNESIUM [CHEM] AM Lab 04/09/21 05:11 Ordered MAGNESIUM [CHEM] AM Lab 04/10/21 05:11 Ordered PHOSPHORUS [CHEM] AM Lab 04/06/21 05:11 Ordered PHOSPHORUS [CHEM] AM Lab 04/07/21 05:11 Ordered PHOSPHORUS [CHEM] AM Lab 04/08/21 05:11 Ordered PHOSPHORUS [CHEM] AM Lab 04/09/21 05:11 Ordered PHOSPHORUS [CHEM] AM Lab 04/10/21 05:11 Ordered Acetaminophen [TylenoL] Med 04/05/21 18:15 Ordered 650 mg PO Q8H Alogliptin Benzoate [Alogliptin] Med 04/06/21 09:00 Ordered 25 mg PO DAILY Aspirin Med 04/06/21 09:00 Ordered 81 mg PO DAILY HYDROmorphone [Dilaudid] Med 04/05/21 15:09 Active 0.5 mg IVPUSH Q4H PRN HYDROmorphone [Dilaudid] Med 04/05/21 18:03 Ordered 1 mg IVPUSH Q3H PRN Heparin Sodium Med 04/05/21 18:15 Ordered 5,000 units SUBCUT Q8H Ibuprofen [Motrin] Med 04/05/21 18:03 Ordered 600 mg PO Q6H PRN Nitroglycerin [Nitrostat] Med 04/05/21 18:14 Ordered 0.4 mg SL Q5M PRN Ondansetron [Zofran ODT] Med 04/05/21 18:03 Ordered 4 mg PO Q4H PRN Sodium Chloride 0.9% [Normal Saline] 1,000 ml Med 04/05/21 15:15 Active IV ASDIRECTED Sodium Chloride 0.9% [Saline Flush] Med 04/05/21 09:37 Active 10 ml FLUSH ASDIRECTED PRN Tamsulosin [Flomax] Med 04/06/21 09:00 Ordered 0.4 mg PO DAILY Ubidecarenone Med 04/06/21 09:00 Ordered 100 mg PO DAILY atorvaSTATin Calcium Med 04/05/21 18:15 Ordered 10 mg PO ASDIRECTED hydroCHLOROthiazide [Hydrochlorothiazide] Med 04/05/21 18:15 Ordered 12.5 mg PO DAILY lisinopriL [Prinivil] Med 04/05/21 18:30 Ordered 20 mg PO DAILY oxyCODONE Med 04/05/21 18:03 Ordered 10 mg PO Q4H PRN polyethylene glycoL 3350 [MiraLAX] Med 04/05/21 18:03 Ordered 17 gm PO DAILY PRN Peripheral IV Insertion Adult [OM.PC] Stat Oth 04/05/21 09:37 Ordered Sequential Compression Device [OM.PC] Per Unit Routine Oth 04/05/21 18:06 Ordered Resuscitation Status Routine Resus Stat 04/05/21 15:07 Ordered Medication Orders Acetaminophen (Acetaminophen 325 Mg Tab) 650 mg PO Q8H [facility] Alogliptin Benzoate (Alogliptin 25 Mg Tab) 25 mg PO DAILY [facility] Aspirin (Aspirin 81 Mg Tab.Chew) 81 mg PO DAILY [facility] Heparin Sodium (Porcine) (Heparin Sodium 5,000 Units/Ml Vial) 5,000 units SUBCUT Q8H [facility] Hydromorphone HCl (Hydromorphone 0.5 Mg/0.5 Ml Syringe) 0.5 mg IVPUSH Q4H PRN PRN Reason: Pain (severe 7-10) Last Admin: 04/05/21 15:29 Dose: 0.5 mg Documented by: CARMEN Hydromorphone HCl (Hydromorphone 0.5 Mg/0.5 Ml Syringe) 1 mg IVPUSH Q3H PRN PRN Reason: Pain (severe 7-10) Sodium Chloride (Normal Saline) 1,000 mls @ 50 mls/hr IV ASDIRECTED [facility] Last Admin: 04/05/21 15:29 Dose: 75 mls/hr Documented by: CARMEN Ibuprofen (Ibuprofen 600 Mg Tab) 600 mg PO Q6H PRN PRN Reason: Pain (moderate 4-6) Lisinopril (Lisinopril 20 Mg Tab) 20 mg PO DAILY [facility] Nitroglycerin (Nitroglycerin 0.4 Mg Tab.Sl) 0.4 mg SL Q5M PRN PRN Reason: Chest Pain Non-Formulary Medication (Atorvastatin Calcium) 10 mg PO ASDIRECTED [facility] Non-Formulary Medication (Hydrochlorothiazide [Hydrochlorothiazide]) 12.5 mg PO DAILY [facility] Non-Formulary Medication (Ubidecarenone) 100 mg PO DAILY [facility] Ondansetron HCl (Ondansetron 4 Mg Tab.Dis) 4 mg PO Q4H PRN PRN Reason: nausea, able to take PO Oxycodone HCl (Oxycodone 5 Mg Tab) 10 mg PO Q4H PRN PRN Reason: Pain (moderate 4-6) Polyethylene Glycol (Polyethylene Glycol 3350 Powder 17 Gm Packet) 17 gm PO DAILY PRN PRN Reason: Constipation Sodium Chloride (Sodium Chloride 0.9% 10 Ml Syringe) 10 ml FLUSH ASDIRECTED PRN PRN Reason: Keep Vein Open Last Admin: 04/05/21 09:47 Dose: 10 ml Documented by: CUCO Tamsulosin HCl (Tamsulosin 0.4 Mg Cap.Er) 0.4 mg PO DAILY [facility] Assessment/Plan Comment:: Patient s/p fall from standing 2 days ago 1. grade II liver injury - Non-op management - daily CBC - hold Plavix - will monitor 2. R 9th rib fx - pain control with NSAIDs and Opioids - multimodal - Incentive spirometer - Ambulation - PT/OT 3. Muscle soreness - Pain control as above 4. HTN - resume home meds 5. DM - resume home meds except for Metformin which we will hold due to recent iodated contrast admin 6. Smoking - will offer pt nicotine patch - Mortality Measure Prognosis:: Good (no major injuries at this time)
[2021-04-05] MEDS ORDERED: Lisinopril 20 MG Tab PO SCH (18:30)
[2021-04-05] MEDS: oxyCODONE 5 MG Tab PO PRN (18:46)
[2021-04-05] MEDS: Acetaminophen 325 MG Tab PO SCH (18:47)
[2021-04-05] MEDS: Nicotine 7 MG/24 Hr Patch TRDERM SCH (18:56)
[2021-04-05] MEDS ORDERED: HYDROCHLOROTHIAZIDE 12.5 MG PO SCH (19:00)
[2021-04-05] MEDS ORDERED: Hydrochlorothiazide 25 MG Tab PO SCH (19:00)
[2021-04-05] MEDS: ATORVASTATIN 20 MG PO SCH (19:08)
[2021-04-05] MEDS: Ibuprofen 600 MG Tab PO SCH (19:10)
[2021-04-05] MEDS: Heparin Sodium 5,000 Units/ML Vial SUBCUT SCH (20:00)
[2021-04-06] MEDS: Ibuprofen 600 MG Tab PO SCH ×4 (02:54→18:07)
[2021-04-06] MEDS: Acetaminophen 325 MG Tab PO SCH ×3 (03:17→18:07)
[2021-04-06] MEDS: oxyCODONE 5 MG Tab PO PRN ×4 (03:18→21:56)
[2021-04-06] MEDS ORDERED: Magnesium Hydroxide 400 MG/5 ML Susp 30 ML Cup PO ONE (03:25)
[2021-04-06] MEDS: Heparin Sodium 5,000 Units/ML Vial SUBCUT SCH ×3 (05:00→19:34)
[2021-04-06] MEDS ORDERED: Bisacodyl 10 MG Supp RECTAL ONE (05:15)
[2021-04-06] MEDS: HYDROmorphone 0.5 MG/0.5 ML Syringe IVPUSH PRN ×3 (06:55→18:07)
[2021-04-06] MEDS ORDERED: Tamsulosin 0.4 MG Cap.ER PO SCH (09:00)
[2021-04-06] MEDS: ALOGLIPTIN 25 MG PO SCH (09:08)
[2021-04-06] MEDS: HYDROCHLOROTHIAZIDE 12.5 MG PO SCH (09:09)
[2021-04-06] MEDS: Aspirin 81 MG Tab.EC #OWN MED# PO SCH (09:09)
[2021-04-06] MEDS: Tamsulosin 0.4 MG Cap.ER #OWN MED# PO SCH (09:09)
[2021-04-06] MEDS: LISINOPRIL 40 MG PO SCH (09:10)
[2021-04-06] MEDS: UBIDECARENONE 100 MG PO SCH ×2 (09:11→09:30)
[2021-04-06] MEDS: Sodium Chloride 0.9% 1,000 ML IV SCH (09:12)
[2021-04-06] MEDS: Polyethylene Glycol 3350 Powder 17 GM Packet PO PRN (11:12)
--- NOTE | 2021-04-06 16:38 | PCM.PN ---
- General Info Date of Service: 04/06/21 Admission Dx/Problem (Free Text): Admission Diagnosis/Problem Admission Diagnosis/Problem Rib injury Subjective Update: patient feels abdominal fullness and lower abdominal pressure. pain is controlled. does not feel hungry. No fevers or chills Functional Status: Reports: Pain Controlled, Tolerating Diet, Urinating - Review of Systems General: Reports: No Symptoms HEENT: Reports: No Symptoms Pulmonary: Reports: Pleuritic Chest Pain Cardiovascular: Reports: No Symptoms Gastrointestinal: Reports: Other (abdominal fullness) Genitourinary: Reports: No Symptoms Musculoskeletal: Reports: Shoulder Pain (right) Skin: Reports: Bruising (right face) Neurological: Reports: No Symptoms Psychiatric: Reports: No Symptoms - Patient Data Vitals - Most Recent: Last Vital Signs Temp 98.1 F 04/06/21 15:32 Pulse 62 04/06/21 15:32 Resp 20 04/06/21 15:32 BP 113/65 04/06/21 15:32 Pulse Ox 96 04/06/21 15:32 Weight - Most Recent: 126.915 kg I&O - Last 24 Hours: Intake & Output 04/06/21 04/06/21 04/06/21 06:59 14:59 22:59 Intake Total 745 526 [id number] Output Total 900 200 Balance -[phone] Lab Results Last 24 Hours: Laboratory Results - last 24 hr 04/05/21 04/06/21 04/06/21 Range/Units 21:36 05:36 05:45 WBC 12.51 H (4.23-9.07) K/mm3 RBC 3.48 L (4.63-6.08) M/mm3 Hgb 11.0 L (13.7-17.5) gm/dl Hct 34.0 L (40.1-51.0) % MCV 97.7 H (79.0-92.2) fl MCH 31.6 (25.7-32.2) pg MCHC 32.4 (32.2-35.5) g/dl RDW Std Deviation 42.2 (35.1-43.9) fL Plt Count 195 (163-337) K/mm3 MPV 9.4 (9.4-12.3) fl Neut % (Auto) 79.6 H (34.0-67.9) % Lymph % (Auto) 9.0 L (21.8-53.1) % Sullivan % (Auto) 10.5 (5.3-12.2) % Eos % (Auto) 0.6 L (0.8-7.0) Baso % (Auto) 0.2 (0.1-1.2) % Neut # (Auto) 9.97 H (1.78-5.38) K/mm3 Lymph # (Auto) 1.12 L (1.32-3.57) K/mm3 Sullivan # (Auto) 1.31 H (0.30-0.82) K/mm3 Eos # (Auto) 0.08 (0.04-0.54) K/mm3 Baso # (Auto) 0.02 (0.01-0.08) K/mm3 Manual Slide Review Abnormal smear Sodium (136-145) mEq/L Potassium (3.5-5.1) mEq/L Chloride (98-107) mEq/L Carbon Dioxide (21-32) mEq/L Anion Gap (5-15) BUN (7-18) mg/dL Creatinine (0.7-1.3) mg/dL Est Cr Clr Drug Dosing mL/min Estimated GFR (MDRD) (>60) mL/min BUN/Creatinine Ratio (14-18) Glucose (70-99) mg/dL POC Glucose 196 H 156 H (70-99) mg/dL Calcium (8.5-10.1) mg/dL Phosphorus (2.6-4.7) mg/dL Magnesium (1.8-2.4) mg/dL 04/06/21 04/06/21 Range/Units 05:45 11:05 WBC (4.23-9.07) K/mm3 RBC (4.63-6.08) M/mm3 Hgb (13.7-17.5) gm/dl Hct (40.1-51.0) % MCV (79.0-92.2) fl MCH (25.7-32.2) pg MCHC (32.2-35.5) g/dl RDW Std Deviation (35.1-43.9) fL Plt Count (163-337) K/mm3 MPV (9.4-12.3) fl Neut % (Auto) (34.0-67.9) % Lymph % (Auto) (21.8-53.1) % Sullivan % (Auto) (5.3-12.2) % Eos % (Auto) (0.8-7.0) Baso % (Auto) (0.1-1.2) % Neut # (Auto) (1.78-5.38) K/mm3 Lymph # (Auto) (1.32-3.57) K/mm3 Sullivan # (Auto) (0.30-0.82) K/mm3 Eos # (Auto) (0.04-0.54) K/mm3 Baso # (Auto) (0.01-0.08) K/mm3 Manual Slide Review Sodium 129 L (136-145) mEq/L Potassium 3.9 (3.5-5.1) mEq/L Chloride 94 L (98-107) mEq/L Carbon Dioxide 28 (21-32) mEq/L Anion Gap 10.9 (5-15) BUN 19 H (7-18) mg/dL Creatinine 1.0 (0.7-1.3) mg/dL Est Cr Clr Drug Dosing 74.25 mL/min Estimated GFR (MDRD) > 60 (>60) mL/min BUN/Creatinine Ratio 19.0 H (14-18) Glucose 147 H (70-99) mg/dL POC Glucose 151 H (70-99) mg/dL Calcium 8.6 (8.5-10.1) mg/dL Phosphorus 3.3 (2.6-4.7) mg/dL Magnesium 1.8 (1.8-2.4) mg/dL Med Orders - Current: Current Medications Acetaminophen (Acetaminophen 325 Mg Tab) 650 mg PO Q8H [facility] Last Admin: 04/06/21 09:15 Dose: 650 mg Documented by: Alogliptin Benzoate (Alogliptin 25 Mg Tab #Own Med#) 25 mg PO DAILY [facility] Last Admin: 04/06/21 09:08 Dose: 25 mg Documented by: Aspirin (Aspirin 81 Mg Tab.Ec #Own Med#) 81 mg PO DAILY [facility] Last Admin: 04/06/21 09:09 Dose: 81 mg Documented by: Heparin Sodium (Porcine) (Heparin Sodium 5,000 Units/Ml Vial) 5,000 units SUBCUT Q8H [facility] Last Admin: 04/06/21 11:12 Dose: 5,000 units Documented by: Hydromorphone HCl (Hydromorphone 0.5 Mg/0.5 Ml Syringe) 0.5 mg IVPUSH Q4H PRN PRN Reason: Pain (severe 7-10) Last Admin: 04/06/21 11:13 Dose: 0.5 mg Documented by: Hydromorphone HCl (Hydromorphone 1 Mg/Ml Syringe) 1 mg IVPUSH Q3H PRN PRN Reason: Pain (severe 7-10) Sodium Chloride (Normal Saline) 1,000 mls @ 50 mls/hr IV ASDIRECTED [facility] Last Admin: 04/06/21 09:12 Dose: 50 mls/hr Documented by: Ibuprofen (Ibuprofen 600 Mg Tab) 600 mg PO Q6H [facility] Last Admin: 04/06/21 13:15 Dose: 600 mg Documented by: Miscellaneous Information (Remove Nicotine 7mg Patch) 1 ea TRDERM DAILY@1900 [facility] Nicotine (Nicotine 7 Mg/24 Hr Patch) 7 mg TRDERM DAILY@1900 [facility] Last Admin: 04/05/21 18:56 Dose: Not Given Documented by: Nitroglycerin (Nitroglycerin 0.4 Mg Tab.Sl) 0.4 mg SL Q5M PRN PRN Reason: Chest Pain Atorvastatin 20mg (Tab #Own Med#) 10 mg PO MoWeFr@1900 [facility] Last Admin: 04/05/21 19:08 Dose: 10 mg Documented by: Ubidecarenone 100 Mg Capsule (Co Q-10) # Own Med# 100 mg PO DAILY [facility] Last Admin: 04/06/21 09:30 Dose: Not Given Documented by: Lisinopril 40mg (Tablet #Own Med#) 0 each PO DAILY [facility] Last Admin: 04/06/21 09:10 Dose: 20 each Documented by: Hydrochlorothiazide (12.5mg #Own Med#) 1 each PO DAILY [facility] Last Admin: 04/06/21 09:09 Dose: 1 each Documented by: Ondansetron HCl (Ondansetron 4 Mg Tab.Dis) 4 mg PO Q4H PRN PRN Reason: nausea, able to take PO Oxycodone HCl (Oxycodone 5 Mg Tab) 10 mg PO Q4H PRN PRN Reason: Pain (moderate 4-6) Last Admin: 04/06/21 16:03 Dose: 10 mg Documented by: Polyethylene Glycol (Polyethylene Glycol 3350 Powder 17 Gm Packet) 17 gm PO DAILY PRN PRN Reason: Constipation Last Admin: 04/06/21 11:12 Dose: 17 gm Documented by: Sodium Chloride (Sodium Chloride 0.9% 10 Ml Syringe) 10 ml FLUSH ASDIRECTED PRN PRN Reason: Keep Vein Open Last Admin: 04/05/21 09:47 Dose: 10 ml Documented by: Tamsulosin HCl (Tamsulosin 0.4 Mg Cap.Er #Own Med#) 0.4 mg PO DAILY [facility] Last Admin: 04/06/21 09:09 Dose: 0.4 mg Documented by: Discontinued Medications Bisacodyl (Bisacodyl 10 Mg Supp) 10 mg RECTAL ONETIME ONE Stop: 04/06/21 05:16 Last Admin: 04/06/21 05:27 Dose: 10 mg Documented by: Hydrochlorothiazide (Hydrochlorothiazide 25 Mg Tab) 12.5 mg PO DAILY@1900 [facility] Hydromorphone HCl (Hydromorphone 0.5 Mg/0.5 Ml Syringe) 0.5 mg IVPUSH ONETIME ONE Stop: 04/05/21 09:38 Last Admin: 04/05/21 09:46 Dose: 0.5 mg Documented by: Hydromorphone HCl (Hydromorphone 0.5 Mg/0.5 Ml Syringe) 0.5 mg IVPUSH ONETIME ONE Stop: 04/05/21 11:01 Last Admin: 04/05/21 11:05 Dose: 0.5 mg Documented by: Hydromorphone HCl (Hydromorphone 0.5 Mg/0.5 Ml Syringe) 0.5 mg IVPUSH ONETIME ONE Stop: 04/05/21 11:26 Last Admin: 04/05/21 12:01 Dose: 0.5 mg Documented by: Hydromorphone HCl (Hydromorphone 0.5 Mg/0.5 Ml Syringe) 1 mg IVPUSH Q3H PRN PRN Reason: Pain (severe 7-10) Last Admin: 04/06/21 06:55 Dose: 1 mg Documented by: Sodium Chloride (Normal Saline) 1,000 mls @ 999 mls/hr IV ONETIME [facility] Last Admin: 04/05/21 09:46 Dose: 999 mls/hr Documented by: Ibuprofen (Ibuprofen 600 Mg Tab) 600 mg PO Q6H PRN PRN Reason: Pain (moderate 4-6) Iopamidol (Iopamidol 612 Mg/Ml 100 Ml Bottle) 100 ml IVPUSH ONETIME ONE Stop: 04/05/21 11:28 Last Admin: 04/05/21 11:42 Dose: 100 ml Documented by: Iopamidol (Iopamidol 612 Mg/Ml 50 Ml Sdv) 50 ml IVPUSH ONETIME ONE Stop: 04/05/21 11:28 Last Admin: 04/05/21 11:42 Dose: 25 ml Documented by: Lisinopril (Lisinopril 20 Mg Tab) 20 mg PO DAILY [facility] Last Admin: 04/05/21 19:30 Dose: Not Given Documented by: Magnesium Hydroxide (Magnesium Hydroxide 400 Mg/5 Ml Susp 30 Ml Cup) 30 ml PO ONETIME ONE Stop: 04/06/21 03:26 Last Admin: 04/06/21 03:35 Dose: 30 ml Documented by: Hydrochlorothiazide (12.5mg #Own Med#) 1 each PO DAILY@1900 [facility] Last Admin: 04/05/21 19:30 Dose: Not Given Documented by: Sodium Chloride (Sodium Chloride 0.9% 10 Ml Syringe) 10 ml FLUSH ONETIME PRN PRN Reason: IV FLUSH Last Admin: 04/05/21 11:43 Dose: 10 ml Documented by: Tamsulosin HCl (Tamsulosin 0.4 Mg Cap.Er) 0.4 mg PO DAILY [facility] - Exam General: Alert, Oriented, Cooperative Lungs: Clear to Auscultation, Normal Respiratory Effort Cardiovascular: Regular Rate, Regular Rhythm, No Murmurs GI/Abdominal Exam: Soft, Non-Tender, No Distention - Patient Data Lab Results Last 24 hrs: Laboratory Results - last 24 hr 04/05/21 04/06/21 04/06/21 Range/Units 21:36 05:36 05:45 WBC 12.51 H (4.23-9.07) K/mm3 RBC 3.48 L (4.63-6.08) M/mm3 Hgb 11.0 L (13.7-17.5) gm/dl Hct 34.0 L (40.1-51.0) % MCV 97.7 H (79.0-92.2) fl MCH 31.6 (25.7-32.2) pg MCHC 32.4 (32.2-35.5) g/dl RDW Std Deviation 42.2 (35.1-43.9) fL Plt Count 195 (163-337) K/mm3 MPV 9.4 (9.4-12.3) fl Neut % (Auto) 79.6 H (34.0-67.9) % Lymph % (Auto) 9.0 L (21.8-53.1) % Sullivan % (Auto) 10.5 (5.3-12.2) % Eos % (Auto) 0.6 L (0.8-7.0) Baso % (Auto) 0.2 (0.1-1.2) % Neut # (Auto) 9.97 H (1.78-5.38) K/mm3 Lymph # (Auto) 1.12 L (1.32-3.57) K/mm3 Sullivan # (Auto) 1.31 H (0.30-0.82) K/mm3 Eos # (Auto) 0.08 (0.04-0.54) K/mm3 Baso # (Auto) 0.02 (0.01-0.08) K/mm3 Manual Slide Review Abnormal smear Sodium (136-145) mEq/L Potassium (3.5-5.1) mEq/L Chloride (98-107) mEq/L Carbon Dioxide (21-32) mEq/L Anion Gap (5-15) BUN (7-18) mg/dL Creatinine (0.7-1.3) mg/dL Est Cr Clr Drug Dosing mL/min Estimated GFR (MDRD) (>60) mL/min BUN/Creatinine Ratio (14-18) Glucose (70-99) mg/dL POC Glucose 196 H 156 H (70-99) mg/dL Calcium (8.5-10.1) mg/dL Phosphorus (2.6-4.7) mg/dL Magnesium (1.8-2.4) mg/dL 04/06/21 04/06/21 Range/Units 05:45 11:05 WBC (4.23-9.07) K/mm3 RBC (4.63-6.08) M/mm3 Hgb (13.7-17.5) gm/dl Hct (40.1-51.0) % MCV (79.0-92.2) fl MCH (25.7-32.2) pg MCHC (32.2-35.5) g/dl RDW Std Deviation (35.1-43.9) fL Plt Count (163-337) K/mm3 MPV (9.4-12.3) fl Neut % (Auto) (34.0-67.9) % Lymph % (Auto) (21.8-53.1) % Sullivan % (Auto) (5.3-12.2) % Eos % (Auto) (0.8-7.0) Baso % (Auto) (0.1-1.2) % Neut # (Auto) (1.78-5.38) K/mm3 Lymph # (Auto) (1.32-3.57) K/mm3 Sullivan # (Auto) (0.30-0.82) K/mm3 Eos # (Auto) (0.04-0.54) K/mm3 Baso # (Auto) (0.01-0.08) K/mm3 Manual Slide Review Sodium 129 L (136-145) mEq/L Potassium 3.9 (3.5-5.1) mEq/L Chloride 94 L (98-107) mEq/L Carbon Dioxide 28 (21-32) mEq/L Anion Gap 10.9 (5-15) BUN 19 H (7-18) mg/dL Creatinine 1.0 (0.7-1.3) mg/dL Est Cr Clr Drug Dosing 74.25 mL/min Estimated GFR (MDRD) > 60 (>60) mL/min BUN/Creatinine Ratio 19.0 H (14-18) Glucose 147 H (70-99) mg/dL POC Glucose 151 H (70-99) mg/dL Calcium 8.6 (8.5-10.1) mg/dL Phosphorus 3.3 (2.6-4.7) mg/dL Magnesium 1.8 (1.8-2.4) mg/dL Result Diagrams: 04/06/21 05:45 04/06/21 05:45 Sepsis Event Note - Evaluation Sepsis Screening Result: No Definite Risk - Focused Exam Vital Signs: Vital Signs Temp Pulse Resp BP Pulse Ox 04/06/21 15:32 98.1 F 62 20 113/65 96 04/06/21 10:59 98.1 F 80 20 106/87 91 L 04/06/21 07:48 98.1 F 65 20 128/86 90 L - Problem List Review Problem List Initiated/Reviewed/Updated: No - My Orders Last 24 Hours: My Active Orders 04/05/21 Dinner ADA Diabetic [[place] [employer] Diet] [DIET] 04/05/21 18:03 Blood Glucose Check, Bedside [RC] QIDACANDBED Up With Assistance [RC] ASDIRECTED Up ad Cintia [RC] ASDIRECTED VTE/DVT Education [RC] DAILY Vital Signs [RC] Q4HR OT Evaluation and Treatment [CONS] Routine PT Evaluation and Treatment [CONS] Routine Ondansetron [Zofran ODT] 4 mg PO Q4H PRN oxyCODONE 10 mg PO Q4H PRN polyethylene glycoL 3350 [MiraLAX] 17 gm PO DAILY PRN 04/05/21 18:04 Intake and Output [RC] 04,16 04/05/21 18:06 Antiembolic Devices [RC] QSHIFT Sequential Compression Device [OM.PC] Per Unit Routine 04/05/21 18:14 Nitroglycerin [Nitrostat] 0.4 mg SL Q5M PRN 04/05/21 18:15 Acetaminophen [TylenoL] 650 mg PO Q8H 04/05/21 18:30 RT Incentive Spirometry [RC] ASDIRECTED 04/05/21 19:00 Ibuprofen [Motrin] 600 mg PO Q6H Nicotine [Habitrol] 7 mg TRDERM DAILY@1899 [facility] Calcium 10 mg PO MoWeFr@189904/05/21 20:00 Heparin Sodium 5,000 units SUBCUT Q8H 04/06/21 07:28 HYDROmorphone [Dilaudid] 1 mg IVPUSH Q3H PRN 04/06/21 09:00 Alogliptin Benzoate [Alogliptin] 25 mg PO DAILY Aspirin [Halfprin] 81 mg PO DAILY Non-Formulary Medication [NF Drug] 0 each PO DAILY Non-Formulary Medication [NF Drug] 1 each PO DAILY Tamsulosin [Flomax] 0.4 mg PO DAILY Ubidecarenone 100 mg PO DAILY 04/06/21 19:00 Remove Patch 1 ea TRDERM DAILY@189904/07/21 05:11 BASIC METABOLIC PANEL,BMP [CHEM] AM CBC WITH AUTO DIFF [HEME] AM MAGNESIUM [CHEM] AM PHOSPHORUS [CHEM] AM 04/08/21 05:11 BASIC METABOLIC PANEL,BMP [CHEM] AM CBC WITH AUTO DIFF [HEME] AM MAGNESIUM [CHEM] AM PHOSPHORUS [CHEM] AM 04/09/21 05:11 BASIC METABOLIC PANEL,BMP [CHEM] AM CBC WITH AUTO DIFF [HEME] AM MAGNESIUM [CHEM] AM PHOSPHORUS [CHEM] AM 04/10/21 05:11 BASIC METABOLIC PANEL,BMP [CHEM] AM CBC WITH AUTO DIFF [HEME] AM MAGNESIUM [CHEM] AM PHOSPHORUS [CHEM] AM - Assessment Assessment:: HD1 s/p fall from standing, mechanical. - Plan Plan:: Patient HD1 s/p fall from standing 2 days prior to presentation 1. grade II liver injury - Non-op management - Hgb stable - daily CBC - hold Plavix - will monitor 2. R 9th rib fx - pain control with NSAIDs and Opioids - multimodal - Incentive spirometer - Ambulation - PT/OT 3. Muscle soreness - Pain control as above 4. HTN - resume home meds 5. DM - resume home meds except for Metformin which we will hold due to recent iodated contrast admin 6. Smoking - will offer pt nicotine patch
[2021-04-06] MEDS: Nicotine 7 MG/24 Hr Patch TRDERM SCH (18:12)
[2021-04-06] MEDS: REMOVE NICOTINE TRDERM SCH (18:12)
[2021-04-07] MEDS: HYDROmorphone 1 MG/ML Syringe IVPUSH PRN ×2 (01:11→05:32)
[2021-04-07] MEDS: Ibuprofen 600 MG Tab PO SCH ×4 (01:12→18:07)
[2021-04-07] MEDS: Acetaminophen 325 MG Tab PO SCH ×3 (03:44→18:07)
[2021-04-07] MEDS ORDERED: Bisacodyl 10 MG Supp RECTAL ONE (05:16)
[2021-04-07] MEDS: Heparin Sodium 5,000 Units/ML Vial SUBCUT SCH ×3 (05:26→20:59)
[2021-04-07] MEDS ORDERED: Aspirin 81 MG Tab.Chew ONE (08:05)
[2021-04-07] MEDS: ALOGLIPTIN 25 MG PO SCH (08:15)
[2021-04-07] MEDS: Tamsulosin 0.4 MG Cap.ER #OWN MED# PO SCH (08:16)
[2021-04-07] MEDS: Aspirin 81 MG Tab.EC #OWN MED# PO SCH (08:16)
[2021-04-07] MEDS: HYDROCHLOROTHIAZIDE 12.5 MG PO SCH (08:17)
[2021-04-07] MEDS: LISINOPRIL 40 MG PO SCH (08:17)
[2021-04-07] MEDS: UBIDECARENONE 100 MG PO SCH (08:17)
[2021-04-07] MEDS: Polyethylene Glycol 3350 Powder 17 GM Packet PO PRN (10:47)
[2021-04-07] MEDS: oxyCODONE 5 MG Tab PO PRN ×3 (10:47→20:59)
[2021-04-07] MEDS: HYDROmorphone 0.5 MG/0.5 ML Syringe IVPUSH PRN (12:23)
--- NOTE | 2021-04-07 12:23 | PCM.PN ---
- General Info Date of Service: 04/07/21 Admission Dx/Problem (Free Text): Admission Diagnosis/Problem Admission Diagnosis/Problem Rib injury Subjective Update: Patient is stable. able to ambulate. still feels that his abdomen is bloated. pain is well controlled. Functional Status: Reports: Pain Controlled, Tolerating Diet, Ambulating, Urin ating - Review of Systems General: Reports: No Symptoms HEENT: Reports: No Symptoms Pulmonary: Reports: No Symptoms Cardiovascular: Reports: No Symptoms Genitourinary: Reports: No Symptoms Musculoskeletal: Reports: No Symptoms Skin: Reports: No Symptoms Neurological: Reports: No Symptoms - Patient Data Vitals - Most Recent: Last Vital Signs Temp 97.7 F 04/07/21 10:54 Pulse 65 04/07/21 10:54 Resp 20 04/07/21 10:54 BP 123/65 04/07/21 10:54 Pulse Ox 91 L 04/07/21 10:54 Weight - Most Recent: 127.596 kg I&O - Last 24 Hours: Intake & Output 04/06/21 04/07/21 04/07/21 22:59 06:59 14:59 Intake Total 1300 1800 560 Output Total 200 1350 Balance 1100 450 560 Lab Results Last 24 Hours: Laboratory Results - last 24 hr 04/06/21 04/06/21 04/07/21 Range/Units 17:24 21:58 05:20 WBC 8.21 (4.23-9.07) K/mm3 RBC 3.39 L (4.63-6.08) M/mm3 Hgb 10.9 L (13.7-17.5) gm/dl Hct 33.3 L (40.1-51.0) % MCV 98.2 H (79.0-92.2) fl MCH 32.2 (25.7-32.2) pg MCHC 32.7 (32.2-35.5) g/dl RDW Std Deviation 41.6 (35.1-43.9) fL Plt Count 202 (163-337) K/mm3 MPV 9.7 (9.4-12.3) fl Neut % (Auto) 64.6 (34.0-67.9) % Lymph % (Auto) 18.4 L (21.8-53.1) % [place] % (Auto) 13.2 H (5.3-12.2) % Eos % (Auto) 3.4 (0.8-7.0) Baso % (Auto) 0.2 (0.1-1.2) % Neut # (Auto) 5.30 (1.78-5.38) K/mm3 Lymph # (Auto) 1.51 (1.32-3.57) K/mm3 [place] # (Auto) 1.08 H (0.30-0.82) K/mm3 Eos # (Auto) 0.28 (0.04-0.54) K/mm3 Baso # (Auto) 0.02 (0.01-0.08) K/mm3 Sodium (136-145) mEq/L Potassium (3.5-5.1) mEq/L Chloride (98-107) mEq/L Carbon Dioxide (21-32) mEq/L Anion Gap (5-15) BUN (7-18) mg/dL Creatinine (0.7-1.3) mg/dL Est Cr Clr Drug Dosing mL/min Estimated GFR (MDRD) (>60) mL/min BUN/Creatinine Ratio (14-18) Glucose (70-99) mg/dL POC Glucose 142 H 132 H (70-99) mg/dL Calcium (8.5-10.1) mg/dL Phosphorus (2.6-4.7) mg/dL Magnesium (1.8-2.4) mg/dL 04/07/21 04/07/21 04/07/21 Range/Units 05:20 05:24 10:51 WBC (4.23-9.07) K/mm3 RBC (4.63-6.08) M/mm3 Hgb (13.7-17.5) gm/dl Hct (40.1-51.0) % MCV (79.0-92.2) fl MCH (25.7-32.2) pg MCHC (32.2-35.5) g/dl RDW Std Deviation (35.1-43.9) fL Plt Count (163-337) K/mm3 MPV (9.4-12.3) fl Neut % (Auto) (34.0-67.9) % Lymph % (Auto) (21.8-53.1) % [place] % (Auto) (5.3-12.2) % Eos % (Auto) (0.8-7.0) Baso % (Auto) (0.1-1.2) % Neut # (Auto) (1.78-5.38) K/mm3 Lymph # (Auto) (1.32-3.57) K/mm3 [place] # (Auto) (0.30-0.82) K/mm3 Eos # (Auto) (0.04-0.54) K/mm3 Baso # (Auto) (0.01-0.08) K/mm3 Sodium 129 L (136-145) mEq/L Potassium 4.1 (3.5-5.1) mEq/L Chloride 93 L (98-107) mEq/L Carbon Dioxide 32 (21-32) mEq/L Anion Gap 8.1 (5-15) BUN 18 (7-18) mg/dL Creatinine 1.0 (0.7-1.3) mg/dL Est Cr Clr Drug Dosing 74.25 mL/min Estimated GFR (MDRD) > 60 (>60) mL/min BUN/Creatinine Ratio 18.0 (14-18) Glucose 115 H (70-99) mg/dL POC Glucose 115 H 119 H (70-99) mg/dL Calcium 8.5 (8.5-10.1) mg/dL Phosphorus 3.7 (2.6-4.7) mg/dL Magnesium 1.8 (1.8-2.4) mg/dL Med Orders - Current: Current Medications Acetaminophen (Acetaminophen 325 Mg Tab) 650 mg PO Q8H [facility] Last Admin: 04/07/21 10:47 Dose: 650 mg Documented by: Alogliptin Benzoate (Alogliptin 25 Mg Tab #Own Med#) 25 mg PO DAILY [facility] Last Admin: 04/07/21 08:15 Dose: 25 mg Documented by: Aspirin (Aspirin 81 Mg Tab.Ec #Own Med#) 81 mg PO DAILY [facility] Last Admin: 04/07/21 08:16 Dose: 81 mg Documented by: Heparin Sodium (Porcine) (Heparin Sodium 5,000 Units/Ml Vial) 5,000 units SUBCUT Q8H [facility] Last Admin: 04/07/21 05:26 Dose: 5,000 units Documented by: Hydromorphone HCl (Hydromorphone 0.5 Mg/0.5 Ml Syringe) 0.5 mg IVPUSH Q4H PRN PRN Reason: Pain (severe 7-10) Last Admin: 04/06/21 18:07 Dose: 0.5 mg Documented by: Hydromorphone HCl (Hydromorphone 1 Mg/Ml Syringe) 1 mg IVPUSH Q3H PRN PRN Reason: Pain (severe 7-10) Last Admin: 04/07/21 05:32 Dose: 1 mg Documented by: Ibuprofen (Ibuprofen 600 Mg Tab) 600 mg PO Q6H [facility] Last Admin: 04/07/21 07:46 Dose: 600 mg Documented by: Miscellaneous Information (Remove Nicotine 7mg Patch) 1 ea TRDERM DAILY@1900 [facility] Last Admin: 04/06/21 18:12 Dose: Not Given Documented by: Nicotine (Nicotine 7 Mg/24 Hr Patch) 7 mg TRDERM DAILY@1900 [facility] Last Admin: 04/06/21 18:12 Dose: Not Given Documented by: Nitroglycerin (Nitroglycerin 0.4 Mg Tab.Sl) 0.4 mg SL Q5M PRN PRN Reason: Chest Pain Atorvastatin 20mg (Tab #Own Med#) 10 mg PO MoWeFr@1900 [facility] Last Admin: 04/05/21 19:08 Dose: 10 mg Documented by: Lisinopril 40mg (Tablet #Own Med#) 0 each PO DAILY [facility] Last Admin: 04/07/21 08:17 Dose: 20 each Documented by: Hydrochlorothiazide (12.5mg #Own Med#) 1 each PO DAILY [facility] Last Admin: 04/07/21 08:17 Dose: 1 each Documented by: Ubidecarenone 100 Mg Capsule (Co Q-10) # Own Med# 100 mg PO BEDTIME [facility] Ondansetron HCl (Ondansetron 4 Mg Tab.Dis) 4 mg PO Q4H PRN PRN Reason: nausea, able to take PO Oxycodone HCl (Oxycodone 5 Mg Tab) 10 mg PO Q4H PRN PRN Reason: Pain (moderate 4-6) Last Admin: 04/07/21 10:47 Dose: 10 mg Documented by: Polyethylene Glycol (Polyethylene Glycol 3350 Powder 17 Gm Packet) 17 gm PO DAILY PRN PRN Reason: Constipation Last Admin: 04/07/21 10:47 Dose: 17 gm Documented by: Sodium Chloride (Sodium Chloride 0.9% 10 Ml Syringe) 10 ml FLUSH ASDIRECTED PRN PRN Reason: Keep Vein Open Last Admin: 04/05/21 09:47 Dose: 10 ml Documented by: Tamsulosin HCl (Tamsulosin 0.4 Mg Cap.Er #Own Med#) 0.4 mg PO DAILY [facility] Last Admin: 04/07/21 08:16 Dose: 0.4 mg Documented by: Discontinued Medications Aspirin (Aspirin 81 Mg Tab.Chew) Confirm Administered Dose 81 mg .ROUTE .STK-MED ONE Stop: 04/07/21 08:06 Last Admin: 04/07/21 10:21 Dose: Not Given Documented by: Bisacodyl (Bisacodyl 10 Mg Supp) 10 mg RECTAL ONETIME ONE Stop: 04/06/21 05:16 Last Admin: 04/06/21 05:27 Dose: 10 mg Documented by: Bisacodyl (Bisacodyl 10 Mg Supp) 10 mg RECTAL ONETIME ONE Stop: 04/07/21 05:17 Last Admin: 04/07/21 05:36 Dose: 10 mg Documented by: Hydrochlorothiazide (Hydrochlorothiazide 25 Mg Tab) 12.5 mg PO DAILY@1900 [facility] Hydromorphone HCl (Hydromorphone 0.5 Mg/0.5 Ml Syringe) 0.5 mg IVPUSH ONETIME ONE Stop: 04/05/21 09:38 Last Admin: 04/05/21 09:46 Dose: 0.5 mg Documented by: Hydromorphone HCl (Hydromorphone 0.5 Mg/0.5 Ml Syringe) 0.5 mg IVPUSH ONETIME ONE Stop: 04/05/21 11:01 Last Admin: 04/05/21 11:05 Dose: 0.5 mg Documented by: Hydromorphone HCl (Hydromorphone 0.5 Mg/0.5 Ml Syringe) 0.5 mg IVPUSH ONETIME ONE Stop: 04/05/21 11:26 Last Admin: 04/05/21 12:01 Dose: 0.5 mg Documented by: Hydromorphone HCl (Hydromorphone 0.5 Mg/0.5 Ml Syringe) 1 mg IVPUSH Q3H PRN PRN Reason: Pain (severe 7-10) Last Admin: 04/06/21 06:55 Dose: 1 mg Documented by: Sodium Chloride (Normal Saline) 1,000 mls @ 999 mls/hr IV ONETIME [facility] Last Admin: 04/05/21 09:46 Dose: 999 mls/hr Documented by: Sodium Chloride (Normal Saline) 1,000 mls @ 50 mls/hr IV ASDIRECTED [facility] Last Admin: 04/06/21 09:12 Dose: 50 mls/hr Documented by: Ibuprofen (Ibuprofen 600 Mg Tab) 600 mg PO Q6H PRN PRN Reason: Pain (moderate 4-6) Iopamidol (Iopamidol 612 Mg/Ml 100 Ml Bottle) 100 ml IVPUSH ONETIME ONE Stop: 04/05/21 11:28 Last Admin: 04/05/21 11:42 Dose: 100 ml Documented by: Iopamidol (Iopamidol 612 Mg/Ml 50 Ml Sdv) 50 ml IVPUSH ONETIME ONE Stop: 04/05/21 11:28 Last Admin: 04/05/21 11:42 Dose: 25 ml Documented by: Lisinopril (Lisinopril 20 Mg Tab) 20 mg PO DAILY [facility] Last Admin: 04/05/21 19:30 Dose: Not Given Documented by: Magnesium Hydroxide (Magnesium Hydroxide 400 Mg/5 Ml Susp 30 Ml Cup) 30 ml PO ONETIME ONE Stop: 04/06/21 03:26 Last Admin: 04/06/21 03:35 Dose: 30 ml Documented by: Ubidecarenone 100 Mg Capsule (Co Q-10) # Own Med# 100 mg PO DAILY [facility] Last Admin: 04/07/21 08:17 Dose: Not Given Documented by: Hydrochlorothiazide (12.5mg #Own Med#) 1 each PO DAILY@1900 [facility] Last Admin: 04/05/21 19:30 Dose: Not Given Documented by: Sodium Chloride (Sodium Chloride 0.9% 10 Ml Syringe) 10 ml FLUSH ONETIME PRN PRN Reason: IV FLUSH Last Admin: 04/05/21 11:43 Dose: 10 ml Documented by: Tamsulosin HCl (Tamsulosin 0.4 Mg Cap.Er) 0.4 mg PO DAILY [facility] - Exam General: Alert, Oriented Lungs: Normal Respiratory Effort Cardiovascular: Regular Rate, Regular Rhythm, No Murmurs GI/Abdominal Exam: Soft, Non-Tender, Distended Extremities: Normal Inspection - Patient Data Lab Results Last 24 hrs: Laboratory Results - last 24 hr 04/06/21 04/06/21 04/07/21 Range/Units 17:24 21:58 05:20 WBC 8.21 (4.23-9.07) K/mm3 RBC 3.39 L (4.63-6.08) M/mm3 Hgb 10.9 L (13.7-17.5) gm/dl Hct 33.3 L (40.1-51.0) % MCV 98.2 H (79.0-92.2) fl MCH 32.2 (25.7-32.2) pg MCHC 32.7 (32.2-35.5) g/dl RDW Std Deviation 41.6 (35.1-43.9) fL Plt Count 202 (163-337) K/mm3 MPV 9.7 (9.4-12.3) fl Neut % (Auto) 64.6 (34.0-67.9) % Lymph % (Auto) 18.4 L (21.8-53.1) % [place] % (Auto) 13.2 H (5.3-12.2) % Eos % (Auto) 3.4 (0.8-7.0) Baso % (Auto) 0.2 (0.1-1.2) % Neut # (Auto) 5.30 (1.78-5.38) K/mm3 Lymph # (Auto) 1.51 (1.32-3.57) K/mm3 [place] # (Auto) 1.08 H (0.30-0.82) K/mm3 Eos # (Auto) 0.28 (0.04-0.54) K/mm3 Baso # (Auto) 0.02 (0.01-0.08) K/mm3 Sodium (136-145) mEq/L Potassium (3.5-5.1) mEq/L Chloride (98-107) mEq/L Carbon Dioxide (21-32) mEq/L Anion Gap (5-15) BUN (7-18) mg/dL Creatinine (0.7-1.3) mg/dL Est Cr Clr Drug Dosing mL/min Estimated GFR (MDRD) (>60) mL/min BUN/Creatinine Ratio (14-18) Glucose (70-99) mg/dL POC Glucose 142 H 132 H (70-99) mg/dL Calcium (8.5-10.1) mg/dL Phosphorus (2.6-4.7) mg/dL Magnesium (1.8-2.4) mg/dL 04/07/21 04/07/21 04/07/21 Range/Units 05:20 05:24 10:51 WBC (4.23-9.07) K/mm3 RBC (4.63-6.08) M/mm3 Hgb (13.7-17.5) gm/dl Hct (40.1-51.0) % MCV (79.0-92.2) fl MCH (25.7-32.2) pg MCHC (32.2-35.5) g/dl RDW Std Deviation (35.1-43.9) fL Plt Count (163-337) K/mm3 MPV (9.4-12.3) fl Neut % (Auto) (34.0-67.9) % Lymph % (Auto) (21.8-53.1) % [place] % (Auto) (5.3-12.2) % Eos % (Auto) (0.8-7.0) Baso % (Auto) (0.1-1.2) % Neut # (Auto) (1.78-5.38) K/mm3 Lymph # (Auto) (1.32-3.57) K/mm3 [place] # (Auto) (0.30-0.82) K/mm3 Eos # (Auto) (0.04-0.54) K/mm3 Baso # (Auto) (0.01-0.08) K/mm3 Sodium 129 L (136-145) mEq/L Potassium 4.1 (3.5-5.1) mEq/L Chloride 93 L (98-107) mEq/L Carbon Dioxide 32 (21-32) mEq/L Anion Gap 8.1 (5-15) BUN 18 (7-18) mg/dL Creatinine 1.0 (0.7-1.3) mg/dL Est Cr Clr Drug Dosing 74.25 mL/min Estimated GFR (MDRD) > 60 (>60) mL/min BUN/Creatinine Ratio 18.0 (14-18) Glucose 115 H (70-99) mg/dL POC Glucose 115 H 119 H (70-99) mg/dL Calcium 8.5 (8.5-10.1) mg/dL Phosphorus 3.7 (2.6-4.7) mg/dL Magnesium 1.8 (1.8-2.4) mg/dL Result Diagrams: 04/07/21 05:20 04/07/21 05:20 Sepsis Event Note - Evaluation Sepsis Screening Result: No Definite Risk - Focused Exam Vital Signs: Vital Signs Temp Pulse Resp BP Pulse Ox 04/07/21 10:54 97.7 F 65 20 123/65 91 L 04/07/21 07:42 97.9 F 58 L 20 104/54 L 93 L 04/07/21 05:28 97.9 F 60 20 100/88 95 - Problem List Review Problem List Initiated/Reviewed/Updated: No - My Orders Last 24 Hours: My Active Orders 04/06/21 19:00 Remove Patch 1 ea PAUL DAILY@1900 04/07/21 Lunch ADA Diabetic [[place] [employer] Diet] [DIET] 04/07/21 21:00 Ubidecarenone 100 mg PO BEDTIME 04/08/21 05:11 BASIC METABOLIC PANEL,BMP [CHEM] AM CBC WITH AUTO DIFF [HEME] AM MAGNESIUM [CHEM] AM PHOSPHORUS [CHEM] AM 04/09/21 05:11 BASIC METABOLIC PANEL,BMP [CHEM] AM CBC WITH AUTO DIFF [HEME] AM MAGNESIUM [CHEM] AM PHOSPHORUS [CHEM] AM 04/10/21 05:11 BASIC METABOLIC PANEL,BMP [CHEM] AM CBC WITH AUTO DIFF [HEME] AM MAGNESIUM [CHEM] AM PHOSPHORUS [CHEM] AM - Assessment Assessment:: HD2 s/p fall from standing, mechanical. - Plan Plan:: Patient HD2 s/p fall from standing 2 days prior to presentation 1. grade II liver injury - Non-op management - Hgb stable - daily CBC - hold Plavix - will monitor 2. R 9th rib fx - pain control with NSAIDs and Opioids - multimodal. we will stop Iv pain meds today - Incentive spirometer - Ambulation - PT/OT 3. Muscle soreness - Pain control as above 4. HTN - resume home meds 5. DM - resume home meds except for Metformin which we will hold due to recent iodated contrast admin 6. Smoking - will offer pt nicotine patch Dispo: today or tomorrow depending how the patient is doing.
[2021-04-07] MEDS: METFORMIN 1000 MG PO SCH (17:32)
[2021-04-07] MEDS: Nicotine 7 MG/24 Hr Patch TRDERM SCH (18:07)
[2021-04-07] MEDS: REMOVE NICOTINE TRDERM SCH (18:09)
[2021-04-07] MEDS: ATORVASTATIN 20 MG PO SCH (18:10)
[2021-04-07] MEDS: Polyethylene Glycol 3350 Powder 17 GM Packet PO SCH (20:59)
[2021-04-07] MEDS ORDERED: UBIDECARENONE 100 MG PO SCH (21:00)
[2021-04-08] MEDS: Ibuprofen 600 MG Tab PO SCH ×2 (00:19→06:40)
[2021-04-08] MEDS: Acetaminophen 325 MG Tab PO SCH ×3 (00:20→10:30)
[2021-04-08] MEDS: Heparin Sodium 5,000 Units/ML Vial SUBCUT SCH (04:02)
[2021-04-08] MEDS ORDERED: Aspirin 81 MG Tab.Chew ONE (08:06)
[2021-04-08] MEDS: ALOGLIPTIN 25 MG PO SCH (08:10)
[2021-04-08] MEDS: Polyethylene Glycol 3350 Powder 17 GM Packet PO SCH (08:10)
[2021-04-08] MEDS: METFORMIN 1000 MG PO SCH (08:11)
[2021-04-08] MEDS: Aspirin 81 MG Tab.EC #OWN MED# PO SCH (08:11)
[2021-04-08] MEDS: HYDROCHLOROTHIAZIDE 12.5 MG PO SCH (08:11)
[2021-04-08] MEDS: LISINOPRIL 40 MG PO SCH (08:11)
[2021-04-08] MEDS: Tamsulosin 0.4 MG Cap.ER #OWN MED# PO SCH (08:15)
[2021-04-08 08:28] VITALS: BP 105/74; PULSE 63
--- NOTE | 2021-04-08 10:15 | PCM.PN ---
- General Info Date of Service: 04/08/21 Admission Dx/Problem (Free Text): Admission Diagnosis/Problem Admission Diagnosis/Problem Rib injury Subjective Update: doing better, tolerating diet, had a small BM Functional Status: Reports: Pain Controlled, Tolerating Diet, Ambulating, Urinating - Review of Systems General: Reports: No Symptoms HEENT: Reports: No Symptoms Pulmonary: Reports: No Symptoms Cardiovascular: Reports: No Symptoms Gastrointestinal: Reports: No Symptoms Genitourinary: Reports: No Symptoms - Patient Data Vitals - Most Recent: Last Vital Signs Temp 98.2 F 04/08/21 08:01 Pulse 63 04/08/21 08:01 Resp 20 04/08/21 08:01 BP 105/74 04/08/21 08:01 Pulse Ox 94 L 04/08/21 08:01 Weight - Most Recent: 127.641 kg I&O - Last 24 Hours: Intake & Output 04/07/21 04/08/21 04/08/21 22:59 06:59 14:59 Intake Total 1460 1200 Output Total 450 Balance 1010 1200 Lab Results Last 24 Hours: Laboratory Results - last 24 hr 04/07/21 04/07/21 04/07/21 Range/Units 10:51 17:21 21:11 WBC (4.23-9.07) K/mm3 RBC (4.63-6.08) M/mm3 Hgb (13.7-17.5) gm/dl Hct (40.1-51.0) % MCV (79.0-92.2) fl MCH (25.7-32.2) pg MCHC (32.2-35.5) g/dl RDW Std Deviation (35.1-43.9) fL Plt Count (163-337) K/mm3 MPV (9.4-12.3) fl Neut % (Auto) (34.0-67.9) % Lymph % (Auto) (21.8-53.1) % [place] % (Auto) (5.3-12.2) % Eos % (Auto) (0.8-7.0) Baso % (Auto) (0.1-1.2) % Neut # (Auto) (1.78-5.38) K/mm3 Lymph # (Auto) (1.32-3.57) K/mm3 [place] # (Auto) (0.30-0.82) K/mm3 Eos # (Auto) (0.04-0.54) K/mm3 Baso # (Auto) (0.01-0.08) K/mm3 Sodium (136-145) mEq/L Potassium (3.5-5.1) mEq/L Chloride (98-107) mEq/L Carbon Dioxide (21-32) mEq/L Anion Gap (5-15) BUN (7-18) mg/dL Creatinine (0.7-1.3) mg/dL Est Cr Clr Drug Dosing mL/min Estimated GFR (MDRD) (>60) mL/min BUN/Creatinine Ratio (14-18) Glucose (70-99) mg/dL POC Glucose 119 H 109 H 130 H (70-99) mg/dL Calcium (8.5-10.1) mg/dL Phosphorus (2.6-4.7) mg/dL Magnesium (1.8-2.4) mg/dL 04/08/21 04/08/21 04/08/21 Range/Units 06:00 06:00 06:33 WBC 10.11 H (4.23-9.07) K/mm3 RBC 3.31 L (4.63-6.08) M/mm3 Hgb 10.8 L (13.7-17.5) gm/dl Hct 32.6 L (40.1-51.0) % MCV 98.5 H (79.0-92.2) fl MCH 32.6 H (25.7-32.2) pg MCHC 33.1 (32.2-35.5) g/dl RDW Std Deviation 41.8 (35.1-43.9) fL Plt Count 221 (163-337) K/mm3 MPV 10.2 (9.4-12.3) fl Neut % (Auto) 73.4 H (34.0-67.9) % Lymph % (Auto) 12.6 L (21.8-53.1) % [place] % (Auto) 11.1 (5.3-12.2) % Eos % (Auto) 2.6 (0.8-7.0) Baso % (Auto) 0.2 (0.1-1.2) % Neut # (Auto) 7.43 H (1.78-5.38) K/mm3 Lymph # (Auto) 1.27 L (1.32-3.57) K/mm3 [place] # (Auto) 1.12 H (0.30-0.82) K/mm3 Eos # (Auto) 0.26 (0.04-0.54) K/mm3 Baso # (Auto) 0.02 (0.01-0.08) K/mm3 Sodium 134 L (136-145) mEq/L Potassium 4.1 (3.5-5.1) mEq/L Chloride 96 L (98-107) mEq/L Carbon Dioxide 30 (21-32) mEq/L Anion Gap 12.1 (5-15) BUN 20 H (7-18) mg/dL Creatinine 1.0 (0.7-1.3) mg/dL Est Cr Clr Drug Dosing 74.25 mL/min Estimated GFR (MDRD) > 60 (>60) mL/min BUN/Creatinine Ratio 20.0 H (14-18) Glucose 120 H (70-99) mg/dL POC Glucose 105 H (70-99) mg/dL Calcium 9.1 (8.5-10.1) mg/dL Phosphorus 4.2 (2.6-4.7) mg/dL Magnesium 1.9 (1.8-2.4) mg/dL Med Orders - Current: Current Medications Acetaminophen (Acetaminophen 325 Mg Tab) 650 mg PO Q8H [facility] Last Admin: 04/08/21 01:16 Dose: Not Given Documented by: Alogliptin Benzoate (Alogliptin 25 Mg Tab #Own Med#) 25 mg PO DAILY [facility] Last Admin: 04/08/21 08:10 Dose: 25 mg Documented by: Aspirin (Aspirin 81 Mg Tab.Ec #Own Med#) 81 mg PO DAILY [facility] Last Admin: 04/08/21 08:11 Dose: 81 mg Documented by: Heparin Sodium (Porcine) (Heparin Sodium 5,000 Units/Ml Vial) 5,000 units SUBCUT Q8H [facility] Last Admin: 04/08/21 04:02 Dose: 5,000 units Documented by: Ibuprofen (Ibuprofen 600 Mg Tab) 600 mg PO Q6H [facility] Last Admin: 04/08/21 06:40 Dose: 600 mg Documented by: Miscellaneous Information (Remove Nicotine 7mg Patch) 1 ea TRDERM DAILY@1900 [facility] Last Admin: 04/07/21 18:09 Dose: Not Given Documented by: Nicotine (Nicotine 7 Mg/24 Hr Patch) 7 mg TRDERM DAILY@1899 [facility] Last Admin: 04/07/21 18:07 Dose: Not Given Documented by: Nitroglycerin (Nitroglycerin 0.4 Mg Tab.Sl) 0.4 mg SL Q5M PRN PRN Reason: Chest Pain Atorvastatin 20mg (Tab #Own Med#) 10 mg PO MoWeFr@1899 [facility] Last Admin: 04/07/21 18:10 Dose: 10 mg Documented by: Lisinopril 40mg (Tablet #Own Med#) 0 each PO DAILY [facility] Last Admin: 04/08/21 08:11 Dose: 40 each Documented by: Hydrochlorothiazide (12.5mg #Own Med#) 1 each PO DAILY [facility] Last Admin: 04/08/21 08:11 Dose: 1 each Documented by: Ubidecarenone 100 Mg Capsule (Co Q-10) # Own Med# 100 mg PO BEDTIME [facility] Last Admin: 04/07/21 21:00 Dose: 100 mg Documented by: Ondansetron HCl (Ondansetron 4 Mg Tab.Dis) 4 mg PO Q4H PRN PRN Reason: nausea, able to take PO Oxycodone HCl (Oxycodone 5 Mg Tab) 10 mg PO Q4H PRN PRN Reason: Pain (moderate 4-6) Last Admin: 04/07/21 20:59 Dose: 10 mg Documented by: Metformin 1000 Mg Tab Patient's Own Med 0 each PO BIDMEALS [facility] Last Admin: 04/08/21 08:11 Dose: 500 each Documented by: Polyethylene Glycol (Polyethylene Glycol 3350 Powder 17 Gm Packet) 17 gm PO BID [facility] Last Admin: 04/08/21 08:10 Dose: 17 gm Documented by: Sodium Chloride (Sodium Chloride 0.9% 10 Ml Syringe) 10 ml FLUSH ASDIRECTED PRN PRN Reason: Keep Vein Open Last Admin: 04/05/21 09:47 Dose: 10 ml Documented by: Tamsulosin HCl (Tamsulosin 0.4 Mg Cap.Er #Own Med#) 0.4 mg PO DAILY [facility] Last Admin: 04/08/21 08:15 Dose: 0.4 mg Documented by: Discontinued Medications Aspirin (Aspirin 81 Mg Tab.Chew) Confirm Administered Dose 81 mg .ROUTE .STK-MED ONE Stop: 04/07/21 08:06 Last Admin: 04/07/21 10:21 Dose: Not Given Documented by: Aspirin (Aspirin 81 Mg Tab.Chew) Confirm Administered Dose 81 mg .ROUTE .STK-MED ONE Stop: 04/08/21 08:07 Last Admin: 04/08/21 08:16 Dose: Not Given Documented by: Bisacodyl (Bisacodyl 10 Mg Supp) 10 mg RECTAL ONETIME ONE Stop: 04/06/21 05:16 Last Admin: 04/06/21 05:27 Dose: 10 mg Documented by: Bisacodyl (Bisacodyl 10 Mg Supp) 10 mg RECTAL ONETIME ONE Stop: 04/07/21 05:17 Last Admin: 04/07/21 05:36 Dose: 10 mg Documented by: Hydrochlorothiazide (Hydrochlorothiazide 25 Mg Tab) 12.5 mg PO DAILY@1900 [facility] Hydromorphone HCl (Hydromorphone 0.5 Mg/0.5 Ml Syringe) 0.5 mg IVPUSH ONETIME ONE Stop: 04/05/21 09:38 Last Admin: 04/05/21 09:46 Dose: 0.5 mg Documented by: Hydromorphone HCl (Hydromorphone 0.5 Mg/0.5 Ml Syringe) 0.5 mg IVPUSH ONETIME ONE Stop: 04/05/21 11:01 Last Admin: 04/05/21 11:05 Dose: 0.5 mg Documented by: Hydromorphone HCl (Hydromorphone 0.5 Mg/0.5 Ml Syringe) 0.5 mg IVPUSH ONETIME ONE Stop: 04/05/21 11:26 Last Admin: 04/05/21 12:01 Dose: 0.5 mg Documented by: Hydromorphone HCl (Hydromorphone 0.5 Mg/0.5 Ml Syringe) 0.5 mg IVPUSH Q4H PRN PRN Reason: Pain (severe 7-10) Last Admin: 04/07/21 12:23 Dose: 0.5 mg Documented by: Hydromorphone HCl (Hydromorphone 0.5 Mg/0.5 Ml Syringe) 1 mg IVPUSH Q3H PRN PRN Reason: Pain (severe 7-10) Last Admin: 04/06/21 06:55 Dose: 1 mg Documented by: Hydromorphone HCl (Hydromorphone 1 Mg/Ml Syringe) 1 mg IVPUSH Q3H PRN PRN Reason: Pain (severe 7-10) Last Admin: 04/07/21 05:32 Dose: 1 mg Documented by: Sodium Chloride (Normal Saline) 1,000 mls @ 999 mls/hr IV ONETIME [facility] Last Admin: 04/05/21 09:46 Dose: 999 mls/hr Documented by: Sodium Chloride (Normal Saline) 1,000 mls @ 50 mls/hr IV ASDIRECTED [facility] Last Admin: 04/06/21 09:12 Dose: 50 mls/hr Documented by: Ibuprofen (Ibuprofen 600 Mg Tab) 600 mg PO Q6H PRN PRN Reason: Pain (moderate 4-6) Iopamidol (Iopamidol 612 Mg/Ml 100 Ml Bottle) 100 ml IVPUSH ONETIME ONE Stop: 04/05/21 11:28 Last Admin: 04/05/21 11:42 Dose: 100 ml Documented by: Iopamidol (Iopamidol 612 Mg/Ml 50 Ml Sdv) 50 ml IVPUSH ONETIME ONE Stop: 04/05/21 11:28 Last Admin: 04/05/21 11:42 Dose: 25 ml Documented by: Lisinopril (Lisinopril 20 Mg Tab) 20 mg PO DAILY [facility] Last Admin: 04/05/21 19:30 Dose: Not Given Documented by: Magnesium Hydroxide (Magnesium Hydroxide 400 Mg/5 Ml Susp 30 Ml Cup) 30 ml PO ONETIME ONE Stop: 04/06/21 03:26 Last Admin: 04/06/21 03:35 Dose: 30 ml Documented by: Ubidecarenone 100 Mg Capsule (Co Q-10) # Own Med# 100 mg PO DAILY [facility] Last Admin: 04/07/21 08:17 Dose: Not Given Documented by: Hydrochlorothiazide (12.5mg #Own Med#) 1 each PO DAILY@1900 [facility] Last Admin: 04/05/21 19:30 Dose: Not Given Documented by: Polyethylene Glycol (Polyethylene Glycol 3350 Powder 17 Gm Packet) 17 gm PO DAILY PRN PRN Reason: Constipation Last Admin: 04/07/21 10:47 Dose: 17 gm Documented by: Sodium Chloride (Sodium Chloride 0.9% 10 Ml Syringe) 10 ml FLUSH ONETIME PRN PRN Reason: IV FLUSH Last Admin: 04/05/21 11:43 Dose: 10 ml Documented by: Tamsulosin HCl (Tamsulosin 0.4 Mg Cap.Er) 0.4 mg PO DAILY [facility] - Exam General: Alert, Oriented, Cooperative Lungs: Normal Respiratory Effort Cardiovascular: Regular Rate, Regular Rhythm GI/Abdominal Exam: Soft, Non-Tender, No Organomegaly, Tender (slightly) Back Exam: Normal Inspection - Patient Data Lab Results Last 24 hrs: Laboratory Results - last 24 hr 04/07/21 04/07/21 04/07/21 Range/Units 10:51 17:21 21:11 WBC (4.23-9.07) K/mm3 RBC (4.63-6.08) M/mm3 Hgb (13.7-17.5) gm/dl Hct (40.1-51.0) % MCV (79.0-92.2) fl MCH (25.7-32.2) pg MCHC (32.2-35.5) g/dl RDW Std Deviation (35.1-43.9) fL Plt Count (163-337) K/mm3 MPV (9.4-12.3) fl Neut % (Auto) (34.0-67.9) % Lymph % (Auto) (21.8-53.1) % [place] % (Auto) (5.3-12.2) % Eos % (Auto) (0.8-7.0) Baso % (Auto) (0.1-1.2) % Neut # (Auto) (1.78-5.38) K/mm3 Lymph # (Auto) (1.32-3.57) K/mm3 [place] # (Auto) (0.30-0.82) K/mm3 Eos # (Auto) (0.04-0.54) K/mm3 Baso # (Auto) (0.01-0.08) K/mm3 Sodium (136-145) mEq/L Potassium (3.5-5.1) mEq/L Chloride (98-107) mEq/L Carbon Dioxide (21-32) mEq/L Anion Gap (5-15) BUN (7-18) mg/dL Creatinine (0.7-1.3) mg/dL Est Cr Clr Drug Dosing mL/min Estimated GFR (MDRD) (>60) mL/min BUN/Creatinine Ratio (14-18) Glucose (70-99) mg/dL POC Glucose 119 H 109 H 130 H (70-99) mg/dL Calcium (8.5-10.1) mg/dL Phosphorus (2.6-4.7) mg/dL Magnesium (1.8-2.4) mg/dL 04/08/21 04/08/21 04/08/21 Range/Units 06:00 06:00 06:33 WBC 10.11 H (4.23-9.07) K/mm3 RBC 3.31 L (4.63-6.08) M/mm3 Hgb 10.8 L (13.7-17.5) gm/dl Hct 32.6 L (40.1-51.0) % MCV 98.5 H (79.0-92.2) fl MCH 32.6 H (25.7-32.2) pg MCHC 33.1 (32.2-35.5) g/dl RDW Std Deviation 41.8 (35.1-43.9) fL Plt Count 221 (163-337) K/mm3 MPV 10.2 (9.4-12.3) fl Neut % (Auto) 73.4 H (34.0-67.9) % Lymph % (Auto) 12.6 L (21.8-53.1) % [place] % (Auto) 11.1 (5.3-12.2) % Eos % (Auto) 2.6 (0.8-7.0) Baso % (Auto) 0.2 (0.1-1.2) % Neut # (Auto) 7.43 H (1.78-5.38) K/mm3 Lymph # (Auto) 1.27 L (1.32-3.57) K/mm3 [place] # (Auto) 1.12 H (0.30-0.82) K/mm3 Eos # (Auto) 0.26 (0.04-0.54) K/mm3 Baso # (Auto) 0.02 (0.01-0.08) K/mm3 Sodium 134 L (136-145) mEq/L Potassium 4.1 (3.5-5.1) mEq/L Chloride 96 L (98-107) mEq/L Carbon Dioxide 30 (21-32) mEq/L Anion Gap 12.1 (5-15) BUN 20 H (7-18) mg/dL Creatinine 1.0 (0.7-1.3) mg/dL Est Cr Clr Drug Dosing 74.25 mL/min Estimated GFR (MDRD) > 60 (>60) mL/min BUN/Creatinine Ratio 20.0 H (14-18) Glucose 120 H (70-99) mg/dL POC Glucose 105 H (70-99) mg/dL Calcium 9.1 (8.5-10.1) mg/dL Phosphorus 4.2 (2.6-4.7) mg/dL Magnesium 1.9 (1.8-2.4) mg/dL Result Diagrams: 04/08/21 06:00 04/08/21 06:00 Sepsis Event Note - Evaluation Sepsis Screening Result: No Definite Risk - Focused Exam Vital Signs: Vital Signs Temp Pulse Resp BP Pulse Ox 04/08/21 08:01 98.2 F 63 20 105/74 94 L 04/08/21 04:52 97.5 F 71 18 151/63 H 95 04/08/21 01:11 118/78 - Problem List Review Problem List Initiated/Reviewed/Updated: No - My Orders Last 24 Hours: My Active Orders 04/07/21 Lunch ADA Diabetic [[employer] Diet] [DIET] 04/07/21 17:00 Patient's Own Medication [Ptom] 0 each PO BIDMEALS 04/07/21 21:00 Ubidecarenone 100 mg PO BEDTIME polyethylene glycoL 3350 [MiraLAX] 17 gm PO BID 04/08/21 00:39 Enema [RC] 0600 04/09/21 05:11 BASIC METABOLIC PANEL,BMP [CHEM] AM CBC WITH AUTO DIFF [HEME] AM MAGNESIUM [CHEM] AM PHOSPHORUS [CHEM] AM 04/10/21 05:11 BASIC METABOLIC PANEL,BMP [CHEM] AM CBC WITH AUTO DIFF [HEME] AM MAGNESIUM [CHEM] AM PHOSPHORUS [CHEM] AM - Assessment Assessment:: HD3 s/p fall from standing, mechanical. - Plan Plan:: Patient HD2 s/p fall from standing 2 days prior to presentation 1. grade II liver injury - Non-op management - Hgb stable - daily CBC - hold Plavix - will monitor 2. R 9th rib fx - pain control with NSAIDs and Opioids - multimodal. we will stop Iv pain meds today - Incentive spirometer - Ambulation - PT/OT 3. Muscle soreness - Pain control as above 4. HTN - resume home meds 5. DM - resume home meds except for Metformin which we will hold due to recent iodated contrast admin 6. Smoking - will offer pt nicotine patch Dispo: dc home today
--- NOTE | 2021-04-08 10:34 | PCM.DCSUM1 ---
Discharge Summary - Hospital Course Free Text/Narrative:: Patient fell at home and sustained rib fractures on the right as well as grade II liver injury. He was admitted for obs. He did well with pain control, ambulation, weaned off oxygen. He is now ready to return home. Diagnosis: Stroke: No - Discharge Data Discharge Date: 04/08/21 Discharge Disposition: Home, Self-Care 01 Condition: Good - Referral to Home Health Primary Care Physician: Shea Bhandari NP - Patient Summary/Data Consults: Consultations 04/05/21 18:03 OT Evaluation and Treatment [CONS] Routine PT Evaluation and Treatment [CONS] Routine - Patient Instructions Diet: Heart Healthy Diet Activity: As Tolerated Driving: Do Not Drive (until 24 hrs after you stop taking opioid pain medications) Showering/Bathing: May Shower Notify Provider of: Fever, Increased Pain, Nausea and/or Vomiting Other/Special Instructions: - Take Tylenol or Ibuprofen regularly. Use the prescribed opioid pain medications if pain becomes severe. - Use Miralax to keep your stools soft and avoid constipation. - - Hold Plavix for 14 days - until 04/22. Continue to take Baby Aspirin. Resume all your other home medications. - Discharge Plan *PRESCRIPTION DRUG MONITORING PROGRAM REVIEWED*: No *COPY OF PRESCRIPTION DRUG MONITORING REPORT IN PATIENT KODY: No Prescriptions/Med Rec: polyethylene glycoL 3350 [MiraLAX] 17 gm PO BID 15 Days #30 packet oxyCODONE 10 mg PO Q6H PRN 10 Days #40 tablet PRN Reason: Pain (Moderate 4-6) Home Medications: Home Meds Lisinopril 20 mg PO DAILY 03/21/16 [History] metFORMIN [Glucophage] 500 mg PO BID 03/21/16 [History] Clopidogrel [Plavix] 75 mg PO DAILY 10/02/18 [History] Alogliptin Benzoate [Alogliptin] 25 mg PO DAILY 03/22/20 [History] Ibuprofen 800 mg PO TID PRN 03/22/20 [History] Nitroglycerin 0.4 mg SL Q5M PRN #1 bottle 03/22/20 [Rx] hydroCHLOROthiazide [Hydrochlorothiazide] 12.5 mg PO DAILY 03/22/20 [History] Acetaminophen [Tylenol] 650 mg PO Q4H PRN 04/05/21 [History] Ascorbate Calcium [Vitamin C] 500 mg PO DAILY 04/05/21 [History] Aspirin 81 mg PO DAILY 04/05/21 [History] Fish Oil/[place]-3 Fatty Acids [Fish Oil 1,000 MG] 1 tab PO BEDTIME 04/05/21 [History] Multivit-Min/Folic/Vit K/Lycop [Men's Multivitamin Tablet] 2 each PO DAILY 04/05/21 [History] Tamsulosin [Flomax] 0.4 mg PO DAILY 04/05/21 [History] Ubidecarenone [Co Q-10] 100 mg PO DAILY 04/05/21 [History] atorvaSTATin Calcium [Atorvastatin Calcium] 10 mg PO ASDIRECTED 04/05/21 [History] Acetaminophen [Tylenol] 650 mg PO Q8H tablet 04/08/21 [Rx] Non-Formulary Medication [NF Drug] 0 each PO DAILY each 04/08/21 [Rx] Non-Formulary Medication [NF Drug] 1 each PO DAILY each 04/08/21 [Rx] atorvaSTATin Calcium 10 mg PO MoWeFr@1900 04/08/21 [Rx] oxyCODONE 10 mg PO Q6H PRN 10 Days #40 tablet 04/08/21 [Rx] polyethylene glycoL 3350 [MiraLAX] 17 gm PO BID 15 Days #30 packet 04/08/21 [Rx] Oxygen Therapy Mode: Room Air Patient Handouts: Rib Fracture, [id number], Steps to Quit Smoking Referrals: Emely Norris MD [Ordering Only Provider] - 04/14/21 10:30 am Armida Painting MD [Physician] - (As needed) - Discharge Summary/Plan Comment DC Time >30 min.: Yes - General Info Date of Service: 04/08/21 Admission Dx/Problem (Free Text: Admission Diagnosis/Problem Admission Diagnosis/Problem Rib injury Subjective Update: doing better, tolerating diet, had a small BM Functional Status: Reports: Pain Controlled, Tolerating Diet, Ambulating, Urinating - Review of Systems General: Reports: No Symptoms HEENT: Reports: No Symptoms Pulmonary: Reports: No Symptoms Cardiovascular: Reports: No Symptoms Gastrointestinal: Reports: No Symptoms Genitourinary: Reports: No Symptoms Musculoskeletal: Reports: Back Pain (soreness) - Patient Data Vitals - Most Recent: Last Vital Signs Temp 98.2 F 04/08/21 08:01 Pulse 63 04/08/21 08:01 Resp 20 04/08/21 08:01 BP 105/74 04/08/21 08:01 Pulse Ox 94 L 04/08/21 08:01 Weight - Most Recent: 127.641 kg I&O - Last 24 hours: Intake & Output 04/07/21 04/08/21 04/08/21 22:59 06:59 14:59 Intake Total 1460 1200 Output Total 450 Balance 1010 1200 Lab Results - Last 24 hrs: Laboratory Results - last 24 hr 04/07/21 04/07/21 04/07/21 Range/Units 10:51 17:21 21:11 WBC (4.23-9.07) K/mm3 RBC (4.63-6.08) M/mm3 Hgb (13.7-17.5) gm/dl Hct (40.1-51.0) % MCV (79.0-92.2) fl MCH (25.7-32.2) pg MCHC (32.2-35.5) g/dl RDW Std Deviation (35.1-43.9) fL Plt Count (163-337) K/mm3 MPV (9.4-12.3) fl Neut % (Auto) (34.0-67.9) % Lymph % (Auto) (21.8-53.1) % Rich % (Auto) (5.3-12.2) % Eos % (Auto) (0.8-7.0) Baso % (Auto) (0.1-1.2) % Neut # (Auto) (1.78-5.38) K/mm3 Lymph # (Auto) (1.32-3.57) K/mm3 Rich # (Auto) (0.30-0.82) K/mm3 Eos # (Auto) (0.04-0.54) K/mm3 Baso # (Auto) (0.01-0.08) K/mm3 Sodium (136-145) mEq/L Potassium (3.5-5.1) mEq/L Chloride (98-107) mEq/L Carbon Dioxide (21-32) mEq/L Anion Gap (5-15) BUN (7-18) mg/dL Creatinine (0.7-1.3) mg/dL Est Cr Clr Drug Dosing mL/min Estimated GFR (MDRD) (>60) mL/min BUN/Creatinine Ratio (14-18) Glucose (70-99) mg/dL POC Glucose 119 H 109 H 130 H (70-99) mg/dL Calcium (8.5-10.1) mg/dL Phosphorus (2.6-4.7) mg/dL Magnesium (1.8-2.4) mg/dL 04/08/21 04/08/21 04/08/21 Range/Units 06:00 06:00 06:33 WBC 10.11 H (4.23-9.07) K/mm3 RBC 3.31 L (4.63-6.08) M/mm3 Hgb 10.8 L (13.7-17.5) gm/dl Hct 32.6 L (40.1-51.0) % MCV 98.5 H (79.0-92.2) fl MCH 32.6 H (25.7-32.2) pg MCHC 33.1 (32.2-35.5) g/dl RDW Std Deviation 41.8 (35.1-43.9) fL Plt Count 221 (163-337) K/mm3 MPV 10.2 (9.4-12.3) fl Neut % (Auto) 73.4 H (34.0-67.9) % Lymph % (Auto) 12.6 L (21.8-53.1) % Rich % (Auto) 11.1 (5.3-12.2) % Eos % (Auto) 2.6 (0.8-7.0) Baso % (Auto) 0.2 (0.1-1.2) % Neut # (Auto) 7.43 H (1.78-5.38) K/mm3 Lymph # (Auto) 1.27 L (1.32-3.57) K/mm3 Rich # (Auto) 1.12 H (0.30-0.82) K/mm3 Eos # (Auto) 0.26 (0.04-0.54) K/mm3 Baso # (Auto) 0.02 (0.01-0.08) K/mm3 Sodium 134 L (136-145) mEq/L Potassium 4.1 (3.5-5.1) mEq/L Chloride 96 L (98-107) mEq/L Carbon Dioxide 30 (21-32) mEq/L Anion Gap 12.1 (5-15) BUN 20 H (7-18) mg/dL Creatinine 1.0 (0.7-1.3) mg/dL Est Cr Clr Drug Dosing 74.25 mL/min Estimated GFR (MDRD) > 60 (>60) mL/min BUN/Creatinine Ratio 20.0 H (14-18) Glucose 120 H (70-99) mg/dL POC Glucose 105 H (70-99) mg/dL Calcium 9.1 (8.5-10.1) mg/dL Phosphorus 4.2 (2.6-4.7) mg/dL Magnesium 1.9 (1.8-2.4) mg/dL Med Orders - Current: Current Medications Acetaminophen (Acetaminophen 325 Mg Tab) 650 mg PO Q8H [facility] Last Admin: 04/08/21 01:16 Dose: Not Given Documented by: Alogliptin Benzoate (Alogliptin 25 Mg Tab #Own Med#) 25 mg PO DAILY [facility] Last Admin: 04/08/21 08:10 Dose: 25 mg Documented by: Aspirin (Aspirin 81 Mg Tab.Ec #Own Med#) 81 mg PO DAILY [facility] Last Admin: 04/08/21 08:11 Dose: 81 mg Documented by: Heparin Sodium (Porcine) (Heparin Sodium 5,000 Units/Ml Vial) 5,000 units SUBCUT Q8H [facility] Last Admin: 04/08/21 04:02 Dose: 5,000 units Documented by: Ibuprofen (Ibuprofen 600 Mg Tab) 600 mg PO Q6H [facility] Last Admin: 04/08/21 06:40 Dose: 600 mg Documented by: Miscellaneous Information (Remove Nicotine 7mg Patch) 1 ea TRDERM DAILY@1899 [facility] Last Admin: 04/07/21 18:09 Dose: Not Given Documented by: Nicotine (Nicotine 7 Mg/24 Hr Patch) 7 mg TRDERM DAILY@1899 [facility] Last Admin: 04/07/21 18:07 Dose: Not Given Documented by: Nitroglycerin (Nitroglycerin 0.4 Mg Tab.Sl) 0.4 mg SL Q5M PRN PRN Reason: Chest Pain Atorvastatin 20mg (Tab #Own Med#) 10 mg PO MoWeFr@1899 [facility] Last Admin: 04/07/21 18:10 Dose: 10 mg Documented by: Lisinopril 40mg (Tablet #Own Med#) 0 each PO DAILY [facility] Last Admin: 04/08/21 08:11 Dose: 40 each Documented by: Hydrochlorothiazide (12.5mg #Own Med#) 1 each PO DAILY [facility] Last Admin: 04/08/21 08:11 Dose: 1 each Documented by: Ubidecarenone 100 Mg Capsule (Co Q-10) # Own Med# 100 mg PO BEDTIME [facility] Last Admin: 04/07/21 21:00 Dose: 100 mg Documented by: Ondansetron HCl (Ondansetron 4 Mg Tab.Dis) 4 mg PO Q4H PRN PRN Reason: nausea, able to take PO Oxycodone HCl (Oxycodone 5 Mg Tab) 10 mg PO Q4H PRN PRN Reason: Pain (moderate 4-6) Last Admin: 04/07/21 20:59 Dose: 10 mg Documented by: Metformin 1000 Mg Tab Patient's Own Med 0 each PO BIDMEALS [facility] Last Admin: 04/08/21 08:11 Dose: 500 each Documented by: Polyethylene Glycol (Polyethylene Glycol 3350 Powder 17 Gm Packet) 17 gm PO BID [facility] Last Admin: 04/08/21 08:10 Dose: 17 gm Documented by: Sodium Chloride (Sodium Chloride 0.9% 10 Ml Syringe) 10 ml FLUSH ASDIRECTED PRN PRN Reason: Keep Vein Open Last Admin: 04/05/21 09:47 Dose: 10 ml Documented by: Tamsulosin HCl (Tamsulosin 0.4 Mg Cap.Er #Own Med#) 0.4 mg PO DAILY [facility] Last Admin: 04/08/21 08:15 Dose: 0.4 mg Documented by: Discontinued Medications Aspirin (Aspirin 81 Mg Tab.Chew) Confirm Administered Dose 81 mg .ROUTE .STK-MED ONE Stop: 04/07/21 08:06 Last Admin: 04/07/21 10:21 Dose: Not Given Documented by: Aspirin (Aspirin 81 Mg Tab.Chew) Confirm Administered Dose 81 mg .ROUTE .STK-MED ONE Stop: 04/08/21 08:07 Last Admin: 04/08/21 08:16 Dose: Not Given Documented by: Bisacodyl (Bisacodyl 10 Mg Supp) 10 mg RECTAL ONETIME ONE Stop: 04/06/21 05:16 Last Admin: 04/06/21 05:27 Dose: 10 mg Documented by: Bisacodyl (Bisacodyl 10 Mg Supp) 10 mg RECTAL ONETIME ONE Stop: 04/07/21 05:17 Last Admin: 04/07/21 05:36 Dose: 10 mg Documented by: Hydrochlorothiazide (Hydrochlorothiazide 25 Mg Tab) 12.5 mg PO DAILY@1900 [facility] Hydromorphone HCl (Hydromorphone 0.5 Mg/0.5 Ml Syringe) 0.5 mg IVPUSH ONETIME ONE Stop: 04/05/21 09:38 Last Admin: 04/05/21 09:46 Dose: 0.5 mg Documented by: Hydromorphone HCl (Hydromorphone 0.5 Mg/0.5 Ml Syringe) 0.5 mg IVPUSH ONETIME ONE Stop: 04/05/21 11:01 Last Admin: 04/05/21 11:05 Dose: 0.5 mg Documented by: Hydromorphone HCl (Hydromorphone 0.5 Mg/0.5 Ml Syringe) 0.5 mg IVPUSH ONETIME ONE Stop: 04/05/21 11:26 Last Admin: 04/05/21 12:01 Dose: 0.5 mg Documented by: Hydromorphone HCl (Hydromorphone 0.5 Mg/0.5 Ml Syringe) 0.5 mg IVPUSH Q4H PRN PRN Reason: Pain (severe 7-10) Last Admin: 04/07/21 12:23 Dose: 0.5 mg Documented by: Hydromorphone HCl (Hydromorphone 0.5 Mg/0.5 Ml Syringe) 1 mg IVPUSH Q3H PRN PRN Reason: Pain (severe 7-10) Last Admin: 04/06/21 06:55 Dose: 1 mg Documented by: Hydromorphone HCl (Hydromorphone 1 Mg/Ml Syringe) 1 mg IVPUSH Q3H PRN PRN Reason: Pain (severe 7-10) Last Admin: 04/07/21 05:32 Dose: 1 mg Documented by: Sodium Chloride (Normal Saline) 1,000 mls @ 999 mls/hr IV ONETIME [facility] Last Admin: 04/05/21 09:46 Dose: 999 mls/hr Documented by: Sodium Chloride (Normal Saline) 1,000 mls @ 50 mls/hr IV ASDIRECTED [facility] Last Admin: 04/06/21 09:12 Dose: 50 mls/hr Documented by: Ibuprofen (Ibuprofen 600 Mg Tab) 600 mg PO Q6H PRN PRN Reason: Pain (moderate 4-6) Iopamidol (Iopamidol 612 Mg/Ml 100 Ml Bottle) 100 ml IVPUSH ONETIME ONE Stop: 04/05/21 11:28 Last Admin: 04/05/21 11:42 Dose: 100 ml Documented by: Iopamidol (Iopamidol 612 Mg/Ml 50 Ml Sdv) 50 ml IVPUSH ONETIME ONE Stop: 04/05/21 11:28 Last Admin: 04/05/21 11:42 Dose: 25 ml Documented by: Lisinopril (Lisinopril 20 Mg Tab) 20 mg PO DAILY [facility] Last Admin: 04/05/21 19:30 Dose: Not Given Documented by: Magnesium Hydroxide (Magnesium Hydroxide 400 Mg/5 Ml Susp 30 Ml Cup) 30 ml PO ONETIME ONE Stop: 04/06/21 03:26 Last Admin: 04/06/21 03:35 Dose: 30 ml Documented by: Ubidecarenone 100 Mg Capsule (Co Q-10) # Own Med# 100 mg PO DAILY [facility] Last Admin: 04/07/21 08:17 Dose: Not Given Documented by: Hydrochlorothiazide (12.5mg #Own Med#) 1 each PO DAILY@1900 [facility] Last Admin: 04/05/21 19:30 Dose: Not Given Documented by: Polyethylene Glycol (Polyethylene Glycol 3350 Powder 17 Gm Packet) 17 gm PO DAILY PRN PRN Reason: Constipation Last Admin: 04/07/21 10:47 Dose: 17 gm Documented by: Sodium Chloride (Sodium Chloride 0.9% 10 Ml Syringe) 10 ml FLUSH ONETIME PRN PRN Reason: IV FLUSH Last Admin: 04/05/21 11:43 Dose: 10 ml Documented by: Tamsulosin HCl (Tamsulosin 0.4 Mg Cap.Er) 0.4 mg PO DAILY [facility] - Exam General: Reports: Alert, Oriented, Cooperative Lungs: Reports: Normal Respiratory Effort Cardiovascular: Reports: Regular Rate, Regular Rhythm GI/Abdominal Exam: Soft, Non-Tender, No Organomegaly, No Distention
[2021-04-08] MEDS: oxyCODONE 5 MG Tab PO PRN (10:39)
== END 2021-04-08 11:07 | disposition home or self-care (01) ==
LOC: JD.ED 08:59 → JD.MS 14:11
PROVIDERS: ADMIT Surgery; ATTEND Surgery
DX: S22.31XA Fracture of one rib, right side, initial encounter for closed fracture (principal); S36.119A Unspecified injury of liver, initial encounter; E11.9 Type 2 diabetes mellitus without complications; F17.210 Nicotine dependence, cigarettes, uncomplicated; I25.10 Atherosclerotic heart disease of native coronary artery without angina pectoris; I10 Essential (primary) hypertension; Z20.822 Contact with and (suspected) exposure to COVID-19; Z98.890 Other specified postprocedural states; Z79.02 Long term (current) use of antithrombotics/antiplatelets; Z79.82 Long term (current) use of aspirin; Z95.0 Presence of cardiac pacemaker; Z79.899 Other long term (current) drug therapy; Z79.84 Long term (current) use of oral hypoglycemic drugs; W18.30XA Fall on same level, unspecified, initial encounter
CPT/HCPCS: 36415; 71101; 71260; 72128; 72131; 74177; 80048; 80053; 82947; 83735; 84100; 85025; 87635; 96374; 96376; 99285; A9270; J1170; J1644; J7030; Q9967; 96372; 99284; G0378; U0002

== ENCOUNTER 2024-11-30 06:45 | Day surgery (SDC) | payer OTHER, MEDICARE ==
[~2024-11-30 06:45] MED LIST changes: -Cefuroxime 10 MG/ML SYRINGE EYERT SCH; +Dexamethasone 4 MG/ML 5 ML MDV ONE; +Ketorolac 30 MG/ML SDV ONE; -Lidocaine 1% PF 2 ML SDV INJECT SCH; +Lidocaine 2% 5 ML SDV ONE; +Midazolam 1 MG/ML 2 ML SDV ONE; +Ondansetron 4 MG/2 ML SDV ONE; -Pilocarpine 4% Ophth Soln 15 ML Bot EYERT SCH; +Propofol 200 MG/20 ML SDV ONE; +ceFAZolin 2 GM Vial ONE
[2024-11-30] MEDS ORDERED: Lactated Ringers 1,000 ML IV ONE (06:46)
[2024-11-30] MEDS ORDERED: dexmedeTOMIDine HCl 200 MCG/2 ML SDV ONE (06:52)
[2024-11-30] MEDS: Pregabalin 25 MG Cap PO SCH (07:12)
[2024-11-30] MEDS: oxyCODONE ER 10 MG TAB.ER PO SCH (07:12)
[2024-11-30] MEDS: Acetaminophen 325 MG Tab PO SCH (07:13)
[2024-11-30] MEDS ORDERED: Lactated Ringers 1,000 ML ONE (08:33)
[2024-11-30] MEDS ORDERED: Phenylephrine 1% 10 MG/ML SDV ONE (08:48)
[2024-11-30] MEDS ORDERED: Ondansetron 4 MG/2 ML SDV IVPUSH PRN (09:02)
[2024-11-30] MEDS ORDERED: fentaNYL 100 MCG/2 ML SDV IVPUSH PRN (09:02)
[2024-11-30] MEDS ORDERED: HYDROmorphone 0.5 MG/0.5 ML Syringe IVPUSH PRN (09:02)
[2024-11-30] MEDS: Morphine 8 MG, EPINEPHrine 0.3 MG, Cefuroxime 750 MG, Ketorolac 30 MG, Sodium Chloride ... PRN (09:36)
[2024-11-30] MEDS: Tranexamic Acid 1,000 MG/10 ML Vial ONE (09:42)
[2024-11-30] MEDS: VANCOmycin 1 GM SDV ONE (09:42)
[2024-11-30] MEDS ORDERED: oxyCODONE 5 MG Tab PO PRN (09:53)
[2024-11-30 14:22] VITALS: BP 139/66; PULSE 60
== END 2024-11-30 14:00 | disposition home or self-care (01) ==
LOC: JD.SDS 06:45
PROVIDERS: ATTEND Orthopaedic Surgery
DX: M17.12 Unilateral primary osteoarthritis, left knee (principal); I11.9 Hypertensive heart disease without heart failure; I25.10 Atherosclerotic heart disease of native coronary artery without angina pectoris; E11.9 Type 2 diabetes mellitus without complications; E78.2 Mixed hyperlipidemia; Z79.84 Long term (current) use of oral hypoglycemic drugs; Z79.899 Other long term (current) drug therapy
CPT/HCPCS: 01400; 64447; 73560-26-LT; 73560-LT; 97116-GP; 97161-GP; 99100; A9270-GY; C1713; C1776; J0171; J0690; J0697; J1100; J1885; J2250; J2272; J2371; J2405; J2704; J3490; J7120

== ENCOUNTER 2025-05-16 15:42 | Inpatient (IN) | payer MEDICARE, OTHER ==
[2025-05-16] MEDS ORDERED: Sodium Chloride 0.9% 10 ML Syringe FLUSH PRN (16:20)
[2025-05-16 16:29] LABS: BASOPHILS ABSOLUTE AUTO 0.1 K/mm3 (0.0-0.2); BASOPHILS PERCENT AUTO 0.4 % (0.0-1.0); EOSINOPHILS ABSOLUTE AUTO 0.2 K/mm3 (0.0-0.4); EOSINOPHILS PERCENT AUTO 1.1 % (0.0-6.0); IMMATURE GRAN ABSOLUTE AUTO 0.03 K/mm3 (0.00-0.05); IMMATURE GRAN PERCENT AUTO 0.2 % (0.0-0.4); LYMPHOCYTES ABSOLUTE AUTO 1.4 K/mm3 (1.0-4.8); LYMPHOCYTES PERCENT AUTO 10.0 % (24.0-44.0); MEAN PLATELET VOLUME 9.7 fl (9.4-12.4); MONOCYTES ABSOLUTE AUTO 1.0 K/mm3 (0.0-0.8); MONOCYTES PERCENT AUTO 6.9 % (0.0-8.0); NEUTROPHILS ABSOLUTE AUTO 11.5 K/mm3 (1.8-7.7); NEUTROPHILS PERCENT AUTO 81.4 % (41.0-71.0); NRBC ABSOLUTE 0.00 (0.00-0.02); NRBC PERCENT 0.0 % (0.0-0.2); PLATELET COUNT,PLT 236 K/mm3 (150-400); RED BLOOD CELL COUNT 4.14 M/mm3 (4.52-5.90); WHITE BLOOD CELL COUNT,WBC 14.11 K/mm3 (3.9-11.3)
[2025-05-16 16:45] LABS: INR 1.04
[2025-05-16 16:46] LABS: LACTIC ACID 1.3 mmol/L (0.4-2.0); PTT,PARTIAL THROMBOPLSTIN TIME 27.9 SECONDS (21.7-31.4)
[2025-05-16 16:58] LABS: A/G RATIO 1.1 (1-2); ALANINE AMINOTRANSFERASE,ALT 18 U/L (16-63); ASPARTATE AMNIOTRANSFERASE,AST 16 U/L (15-37); BILIRUBIN TOTAL 0.7 mg/dL (0.2-1.0); BLOOD UREA NITROGEN,BUN 22 mg/dL (7-18); CARBON DIOXIDE,CO2 25 mEq/L (21-32); CHLORIDE,CL 102 mEq/L (98-107); CREATININE 1.1 mg/dL (0.7-1.3); ESTIMATED GFR 71 mL/min (>60); GLUCOSE RANDOM 171 mg/dL (70-99); POTASSIUM,K 4.5 mEq/L (3.5-5.1); PROTEIN TOTAL,TP 6.4 g/dl (6.4-8.2); SODIUM,NA 136 mEq/L (136-145); TROPONIN I HIGH SENSITIVITY 5 pg/mL (<=76)
[2025-05-16] MEDS: Iopamidol 755 Mg/ML 100 ML Bottle IVPUSH ONE (17:32)
[2025-05-16 18:28] LABS: APPEARANCE,URINE CLEAR (Clear); GLUCOSE,URINE NEGATIVE (Negative); OCCULT BLOOD,URINE NEGATIVE (Negative)
[2025-05-16 19:59] LABS: BASOPHILS ABSOLUTE AUTO 0.0 K/mm3 (0.0-0.2); BASOPHILS PERCENT AUTO 0.2 % (0.0-1.0); EOSINOPHILS ABSOLUTE AUTO 0.1 K/mm3 (0.0-0.4); EOSINOPHILS PERCENT AUTO 0.5 % (0.0-6.0); IMMATURE GRAN ABSOLUTE AUTO 0.03 K/mm3 (0.00-0.05); IMMATURE GRAN PERCENT AUTO 0.3 % (0.0-0.4); LYMPHOCYTES ABSOLUTE AUTO 1.7 K/mm3 (1.0-4.8); LYMPHOCYTES PERCENT AUTO 15.1 % (24.0-44.0); MEAN PLATELET VOLUME 10.0 fl (9.4-12.4); MONOCYTES ABSOLUTE AUTO 0.7 K/mm3 (0.0-0.8); MONOCYTES PERCENT AUTO 6.3 % (0.0-8.0); NEUTROPHILS ABSOLUTE AUTO 8.6 K/mm3 (1.8-7.7); NEUTROPHILS PERCENT AUTO 77.6 % (41.0-71.0); NRBC ABSOLUTE 0.00 (0.00-0.02); NRBC PERCENT 0.0 % (0.0-0.2); PLATELET COUNT,PLT 217 K/mm3 (150-400); RED BLOOD CELL COUNT 4.10 M/mm3 (4.52-5.90); WHITE BLOOD CELL COUNT,WBC 11.03 K/mm3 (3.9-11.3)
[2025-05-16] MEDS: Magnesium Sulf/Wat 4 GM/50 mL 4 GM in Premix Bag 1 BAG IV ONE (20:23)
[2025-05-17 00:02] LABS: BASOPHILS ABSOLUTE AUTO 0.0 K/mm3 (0.0-0.2); BASOPHILS PERCENT AUTO 0.3 % (0.0-1.0); EOSINOPHILS ABSOLUTE AUTO 0.2 K/mm3 (0.0-0.4); EOSINOPHILS PERCENT AUTO 1.7 % (0.0-6.0); IMMATURE GRAN ABSOLUTE AUTO 0.03 K/mm3 (0.00-0.05); IMMATURE GRAN PERCENT AUTO 0.3 % (0.0-0.4); LYMPHOCYTES ABSOLUTE AUTO 2.0 K/mm3 (1.0-4.8); LYMPHOCYTES PERCENT AUTO 21.9 % (24.0-44.0); MEAN PLATELET VOLUME 9.5 fl (9.4-12.4); MONOCYTES ABSOLUTE AUTO 0.9 K/mm3 (0.0-0.8); MONOCYTES PERCENT AUTO 9.3 % (0.0-8.0); NEUTROPHILS ABSOLUTE AUTO 6.1 K/mm3 (1.8-7.7); NEUTROPHILS PERCENT AUTO 66.5 % (41.0-71.0); NRBC ABSOLUTE 0.00 (0.00-0.02); NRBC PERCENT 0.0 % (0.0-0.2); PLATELET COUNT,PLT 200 K/mm3 (150-400); RED BLOOD CELL COUNT 3.67 M/mm3 (4.52-5.90); WHITE BLOOD CELL COUNT,WBC 9.24 K/mm3 (3.9-11.3)
[2025-05-17] MEDS ORDERED: Ondansetron 4 MG/2 ML SDV IV PRN (00:51)
[2025-05-17] MEDS ORDERED: Acetaminophen/HYDROcodone 325-5 MG Tab PO PRN (00:51)
[2025-05-17] MEDS ORDERED: LORazepam 2 MG/ML SDV IVPUSH PRN (00:51)
[2025-05-17] MEDS ORDERED: Naloxone 0.4 MG/ML SDV IVPUSH PRN (00:51)
[2025-05-17 06:15] LABS: BASOPHILS ABSOLUTE AUTO 0.0 K/mm3 (0.0-0.2); BASOPHILS PERCENT AUTO 0.4 % (0.0-1.0); EOSINOPHILS ABSOLUTE AUTO 0.2 K/mm3 (0.0-0.4); EOSINOPHILS PERCENT AUTO 2.4 % (0.0-6.0); IMMATURE GRAN ABSOLUTE AUTO 0.01 K/mm3 (0.00-0.05); IMMATURE GRAN PERCENT AUTO 0.1 % (0.0-0.4); LYMPHOCYTES ABSOLUTE AUTO 1.5 K/mm3 (1.0-4.8); LYMPHOCYTES PERCENT AUTO 21.7 % (24.0-44.0); MEAN PLATELET VOLUME 9.5 fl (9.4-12.4); MONOCYTES ABSOLUTE AUTO 0.7 K/mm3 (0.0-0.8); MONOCYTES PERCENT AUTO 10.5 % (0.0-8.0); NEUTROPHILS ABSOLUTE AUTO 4.6 K/mm3 (1.8-7.7); NEUTROPHILS PERCENT AUTO 64.9 % (41.0-71.0); NRBC ABSOLUTE 0.00 (0.00-0.02); NRBC PERCENT 0.0 % (0.0-0.2); PLATELET COUNT,PLT 172 K/mm3 (150-400); RED BLOOD CELL COUNT 3.57 M/mm3 (4.52-5.90); WHITE BLOOD CELL COUNT,WBC 7.06 K/mm3 (3.9-11.3)
[2025-05-17 06:49] LABS: A/G RATIO 0.9 (1-2); ALANINE AMINOTRANSFERASE,ALT 13.0 U/L (16-63); ASPARTATE AMNIOTRANSFERASE,AST 11.0 U/L (15-37); BILIRUBIN TOTAL 0.8 mg/dL (0.2-1.0); BLOOD UREA NITROGEN,BUN 15.0 mg/dL (7-18); CARBON DIOXIDE,CO2 26.0 mEq/L (21-32); CHLORIDE,CL 103.0 mEq/L (98-107); CREATININE 0.8 mg/dL (0.7-1.3); EST CRCL DRUG DOSING (CG) 84.91 mL/min; ESTIMATED GFR 93.0 mL/min (>60); GLUCOSE RANDOM 145.0 mg/dL (70-99); POTASSIUM,K 3.8 mEq/L (3.5-5.1); PROTEIN TOTAL,TP 5.8 g/dl (6.4-8.2); SODIUM,NA 136.0 mEq/L (136-145)
[2025-05-17 15:00] LABS: BASOPHILS ABSOLUTE AUTO 0.0 K/mm3 (0.0-0.2); BASOPHILS PERCENT AUTO 0.4 % (0.0-1.0); EOSINOPHILS ABSOLUTE AUTO 0.1 K/mm3 (0.0-0.4); EOSINOPHILS PERCENT AUTO 1.8 % (0.0-6.0); IMMATURE GRAN ABSOLUTE AUTO 0.02 K/mm3 (0.00-0.05); IMMATURE GRAN PERCENT AUTO 0.3 % (0.0-0.4); LYMPHOCYTES ABSOLUTE AUTO 1.9 K/mm3 (1.0-4.8); LYMPHOCYTES PERCENT AUTO 26.0 % (24.0-44.0); MEAN PLATELET VOLUME 9.9 fl (9.4-12.4); MONOCYTES ABSOLUTE AUTO 0.6 K/mm3 (0.0-0.8); MONOCYTES PERCENT AUTO 8.4 % (0.0-8.0); NEUTROPHILS ABSOLUTE AUTO 4.6 K/mm3 (1.8-7.7); NEUTROPHILS PERCENT AUTO 63.1 % (41.0-71.0); NRBC ABSOLUTE 0.00 (0.00-0.02); NRBC PERCENT 0.0 % (0.0-0.2); PLATELET COUNT,PLT 207 K/mm3 (150-400); RED BLOOD CELL COUNT 3.66 M/mm3 (4.52-5.90); WHITE BLOOD CELL COUNT,WBC 7.26 K/mm3 (3.9-11.3)
[2025-05-17 15:47] VITALS: BP 141/75
[2025-05-17 16:33] VITALS: PULSE 65
[2025-05-17] MEDS ORDERED: Insulin Lispro 100 Unit/ML 3 ML KwikPen SUBCUT SCH (17:30)
== END 2025-05-17 16:10 | disposition home or self-care (01) | DRG 379 ==
LOC: JD.ED 15:42 → JD.MS 05-17 00:51 → JD.ICU 05-17 01:09
PROVIDERS: ADMIT Student in an Organized Health Care Education/Training Program; ATTEND Student in an Organized Health Care Education/Training Program
DX: K62.5 Hemorrhage of anus and rectum (principal); K92.2 Gastrointestinal hemorrhage, unspecified; M19.90 Unspecified osteoarthritis, unspecified site; I10 Essential (primary) hypertension; E11.9 Type 2 diabetes mellitus without complications; E83.42 Hypomagnesemia; R74.8 Abnormal levels of other serum enzymes; F17.200 Nicotine dependence, unspecified, uncomplicated; Z98.49 Cataract extraction status, unspecified eye; Z90.79 Acquired absence of other genital organ(s); Z79.890 Hormone replacement therapy; Z79.84 Long term (current) use of oral hypoglycemic drugs; I25.2 Old myocardial infarction; Z95.0 Presence of cardiac pacemaker; Z95.5 Presence of coronary angioplasty implant and graft; Z79.52 Long term (current) use of systemic steroids; Z79.899 Other long term (current) drug therapy
CPT/HCPCS: 36415; 72191; 74175; 80053; 81003; 83605; 83690; 83735; 84484; 85025 ×3; 85610; 85730; 86850; 86900; 86901; 93005; 96361; 96365; 96366 ×2; 96368; 99285; J2470 ×2; J3475; J7030; Q9967; S5010; 93010; 97116-GP; 97161-GP; 97530-GP; 99283; 99284; A9270-GY